=== PATIENT | female | born 1980 | race African-American/Black ===

== ENCOUNTER 2016-08-30 08:54 | Emergency (ER) | payer SELFPAY ==
[2016-08-30] MEDS ORDERED: OXYCODONE-ACETAMINOPHEN 5-325 MG TABLET PO ONE (09:44)
[2016-08-30] MEDS ORDERED: CYCLOBENZAPRINE HCL 10 MG TABLET PO ONE (09:44)
--- NOTE | 2016-08-30 09:50 | ER Document Report ---
HPI - HPI Patient complains to provider of: low back pain Onset: Last week Onset/Duration: Persistent Quality of pain: Sharp Pain Level: 5 Context: Patient complains of low back pain for the past week. Patient denies any injury. Patient states she has a previous history of sciatica and suspects the same although she is not having any pain radiating into her legs. Patient denies any fever, injury, urinary retention or incontinence. Patient denies any IV drug use history. Associated Symptoms: Other - Low back pain Exacerbated by: Movement, Walking Relieved by: Denies Similar symptoms previously: Yes Recently seen / treated by doctor: No - ROS ROS below otherwise negative: Yes Systems Reviewed and Negative: Yes All other systems reviewed and negative - CONSTITUTIONAL Constitutional: DENIES: Fever, Chills - NEURO Neurology: DENIES: Headache, Weakness, Vision blurred, Dizzinesss / Vertigo - RESPIRATORY Respiratory: DENIES: Trouble Breathing, Coughing - URINARY Urinary: DENIES: Dysuria, Urgency, Frequency - REPRODUCTIVE Reproductive: DENIES: :, Postmenopausal, Abnormal bleeding / discharge - MUSCULOSKELETAL Musculoskeletal: REPORTS: Back Pain. DENIES: Extremity pain, Neck Pain, Swelling - DERM Skin Color: Normal Skin Problems: None - NURSING COMMENTS Comment: pt alert and oriented. ambulates with steady gait. states pain to the lower mid back. started last tuesday. states she has hx of sciatic. denies pain going down the legs. states pain is concentrated to the lower back. Past Medical History - General Information source: Patient Last Menstrual Period: 08/05/17 - Social History Smoking Status: Never Smoker Chew tobacco use (# tins/day): No Frequency of alcohol use: None Drug Abuse: None Occupation: import clerk Lives with: Family Family History: None Patient has suicidal ideation: No Patient has homicidal ideation: No - Past Medical History Cardiac Medical History: Reports: Hx Hypertension Pulmonary Medical History: Reports: Hx Bronchitis Endocrine Medical History: Reports: Hx Diabetes Mellitus Type 2 - diet controlled at this time Musculoskeltal Medical History: Reports Other - Back pain Past Surgical History: Reports: Hx Appendectomy, Hx Section, Hx Cholecystectomy - Immunizations Hx Diphtheria, Pertussis, Tetanus Vaccination: Yes Vertical Provider Document - CONSTITUTIONAL Agree With Documented VS: Yes Exam Limitations: No Limitations General Appearance: WD/WN, No Apparent Distress Notes: PHYSICAL EXAMINATION: GENERAL: Obese, well-appearing, and in no acute distress. HEAD: Atraumatic, normocephalic. EYES: sclera clear, anicteric, conjunctiva are normal. ENT: nares patent, Moist mucous membranes. NECK: Normal range of motion, supple no lymphadenopathy LUNGS: respirations unlabored HEART: Regular rate and rhythm without murmurs EXTREMITIES: Normal range of motion, no pitting or edema. No cyanosis. Gait normal, pt ambulates without difficulty BACK: Lower lumbar midline tenderness, lower lumbar paraspinal tenderness, no deformities or step-offs. No CVA tenderness. NEUROLOGICAL: Cranial nerves grossly intact. Normal speech, normal gait. No saddle anesthesia. PSYCH: Normal mood, normal affect. SKIN: Warm, Dry, normal turgor, no rashes or lesions noted. - INFECTION CONTROL TRAVEL OUTSIDE OF THE [place] IN LAST 30 DAYS: No - RESPIRATORY O2 Sat by Pulse Oximetry: 100 Course - Vital Signs Vital signs: Temp Pulse Resp BP Pulse Ox 97.7 F 85 18 139/82 H 100 08/30/16 09:00 08/30/16 09:00 08/30/16 09:00 08/30/16 09:00 08/30/16 09:00 Discharge - Discharge Clinical Impression: Low back pain Qualifiers: Chronicity: acute Back pain laterality: midline Sciatica presence: without sciatica Qualified Code(s): M54.5 - Low back pain Condition: Good Disposition: HOME, SELF-CARE Additional Instructions: Return immediately for any new or worsening symptoms Followup with your primary care provider, call tomorrow to make a followup appointment Prescriptions: Cyclobenzaprine HCl [Flexeril 10 Mg Tablet] 10 mg PO TID #15 tablet Oxycodone HCl/Acetaminophen [Percocet 5-325 mg Tablet] 1 tab PO ASDIR PRN #15 tablet PRN Reason: Forms: Return to Work Referrals: [facility] [Provider Group] - Follow up as needed
[2016-08-30 10:15] VITALS: BP 134/78
== END 2016-08-30 09:55 | disposition home or self-care (01) ==
LOC: ER 08:54
DX: M54.5 Low back pain (principal); I10 Essential (primary) hypertension
CPT/HCPCS: 99283

== ENCOUNTER 2016-09-02 14:39 | Emergency (ER) | payer SELFPAY ==
[2016-09-02] MEDS ORDERED: ASPIRIN 81 MG TABLET, CHEWABLE PO ONE (15:07)
--- NOTE | 2016-09-02 15:11 | ER Document Report ---
ED Medical Screen (RME) - General Stated Complaint: BACK PAIN/CHEST TIGHTNESS Notes: She presents to the emergency department with complaints of low back pain that is radiating down her legs. She reports she was evaluated here last week for same symptoms but not the pain is radiating down her legs. She also complaints of chest tightness. TRAVEL OUTSIDE OF THE [place] IN LAST 30 DAYS: No - Related Data Allergies/Adverse Reactions: lisinopril [Lisinopril] Allergy (Intermediate, Verified 09/02/16 15:03) Swollen tongue MAXWELL Inhibitors [Maxwell Inhibitors] Allergy (Verified 09/02/16 15:03) ACEINHIBITORS [MAXWELL Inhibitors] Allergy (Verified 09/02/16 15:03) Past Medical History - Past Medical History Cardiac Medical History: Reports: Hx Hypertension Pulmonary Medical History: Reports: Hx Bronchitis Endocrine Medical History: Reports: Hx Diabetes Mellitus Type 2 - diet controlled at this time Past Surgical History: Reports: Hx Appendectomy, Hx Section, Hx Cholecystectomy - Immunizations Hx Diphtheria, Pertussis, Tetanus Vaccination: Yes Physical Exam - Vital signs Vitals: Temp Pulse Resp BP Pulse Ox 98.1 F 114 H 20 149/73 H 100 09/02/16 15:05 09/02/16 15:05 09/02/16 15:05 09/02/16 15:05 09/02/16 15:05 Course - Vital Signs Vital signs: Temp Pulse Resp BP Pulse Ox 98.1 F 114 H 20 149/73 H 100 09/02/16 15:05 09/02/16 15:05 09/02/16 15:05 09/02/16 15:05 09/02/16 15:05
[2016-09-02] MEDS ORDERED: DEXAMETHASONE 4 MG TABLET PO ONE (16:33)
[2016-09-02 17:54] LABS: APPEARANCE,URINE TURBID; BILIRUBIN,URINE NEGATIVE (NEGATIVE); GLUCOSE, URINE NEGATIVE (NEGATIVE); KETONES,URINE NEGATIVE (NEGATIVE); LEUKOCYTE ESTERASE,URINE NEGATIVE (NEGATIVE); NITRITE,URINE NEGATIVE (NEGATIVE); PROTEIN,URINE NEGATIVE (NEGATIVE); URINE SPECIFIC GRAVITY 1.028; UROBILINOGEN,URINE NEGATIVE mg/dL (<2.0)
--- NOTE | 2016-09-02 18:00 | ER Document Report ---
[id number] PAIN/CHEST TIGHTNESS Notes: The patient is a 36-year-old female, past medical history sciatica, presents with 1 week of bilateral lower back pain, worse in the left side, and now tingling down the back of her left leg. She feels like her left leg is heavier , but she is able to walk without difficulty. She was seen in the emergency room a few days ago and was given Motrin, Flexeril and Percocet. She says this is helping with her symptoms, but she is unable to take the Flexeril or Percocet at work. 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 She also had a brief episode of right upper chest pain that resolved quickly. She denies shortness of breath, nausea, vomiting, Hx of IVDA, fevers, change in bowel or bladder, flank pain, hematuria or dysuria. TRAVEL OUTSIDE OF THE [place] IN LAST 30 DAYS: No - Related Data Allergies/Adverse Reactions: lisinopril [Lisinopril] Allergy (Intermediate, Verified 09/02/16 15:03) Swollen tongue MAXWELL Inhibitors [Maxwell Inhibitors] Allergy (Verified 09/02/16 15:03) ACEINHIBITORS [MAXWELL Inhibitors] Allergy (Verified 09/02/16 15:03) Past Medical History - General Information source: Patient - Social History Smoking Status: Never Smoker Chew tobacco use (# tins/day): No Frequency of alcohol use: None Drug Abuse: None Family History: None Patient has suicidal ideation: No Patient has homicidal ideation: No - Past Medical History Cardiac Medical History: Reports: Hx Hypertension Pulmonary Medical History: Reports: Hx Bronchitis Endocrine Medical History: Reports: Hx Diabetes Mellitus Type 2 - diet controlled at this time Renal/ Medical History: Denies: Hx Peritoneal Dialysis Past Surgical History: Reports: Hx Appendectomy, Hx Section, Hx Cholecystectomy - Immunizations Hx Diphtheria, Pertussis, Tetanus Vaccination: Yes Review of Systems - Review of Systems Notes: REVIEW OF SYSTEMS: CONSTITUTIONAL: -fevers, -chills EENT: -eye pain, -difficulty swallowing, -nasal congestion CARDIOVASCULAR: +chest pain, -syncope. RESPIRATORY: -cough, -SOB GASTROINTESTINAL: -abdominal pain, - nausea, -vomiting, -diarrhea GENITOURINARY: -dysuria, -hematuria MUSCULOSKELETAL: +back pain, -neck pain SKIN: -rash or skin lesions. HEMATOLOGIC: -easy bruising or bleeding. LYMPHATIC: -swollen, enlarged glands. NEUROLOGICAL: -altered mental status or loss of consciousness, -headache, +left leg tingling PSYCHIATRIC: -anxiety, -depression. ALL OTHER SYSTEMS REVIEWED AND NEGATIVE. Physical Exam - Vital signs Vitals: Temp Pulse Resp BP Pulse Ox 98.1 F 114 H 20 149/73 H 100 09/02/16 15:05 09/02/16 15:05 09/02/16 15:05 09/02/16 15:05 09/02/16 15:05 - Notes Notes: PHYSICAL EXAMINATION: GENERAL: Well-appearing, well-nourished and in no acute distress. HEAD: Atraumatic, normocephalic. EYES: Pupils equal round and reactive to light, extraocular movements intact, sclera anicteric, conjunctiva are normal. ENT: nares patent, oropharynx clear without exudates. Moist mucous membranes. NECK: Normal range of motion, supple without lymphadenopathy LUNGS: Breath sounds clear to auscultation bilaterally and equal. No wheezes rales or rhonchi. HEART: Regular rate and rhythm without murmurs ABDOMEN: Soft, nontender, normoactive bowel sounds. No guarding, no rebound. No masses appreciated. EXTREMITIES: Normal range of motion, no pitting or edema. No cyanosis. Mild tenderness over B/L lower paraspinal muscles. Positive left straight leg raise. NEUROLOGICAL: Cranial nerves grossly intact. Normal speech, normal gait. Normal motor and reflex exams. Tingling down back of left leg. PSYCH: Normal mood, normal affect. SKIN: Warm, Dry, normal turgor, no rashes or lesions noted. Course - Re-evaluation Re-evalutation: Patient's tachycardia resolved before discharge. EKG and chest x-ray does not show any acute findings. Symptoms consistent with sciatica and patient has no red flag signs for low back pain. Treated with steroids and instructed her to continue Motrin and begin Lidoderm patches. She has Flexeril and Percocet prescribed to her from the last time she was in the emergency room. - Vital Signs Vital signs: Temp Pulse Resp BP Pulse Ox 98.2 F 98 20 152/87 H 100 09/02/16 18:08 09/02/16 18:08 09/02/16 18:08 09/02/16 18:08 09/02/16 18:08 - Laboratory Laboratory results interpreted by me: 09/02/16 16:39 Urine Blood MODERATE H Discharge - Discharge Clinical Impression: Back pain Qualifiers: Back pain location: low back pain Chronicity: unspecified Back pain laterality : bilateral Sciatica presence: with sciatica Sciatica laterality: bilateral sciatica Qualified Code(s): M54.42 - Lumbago with sciatica, left side Condition: Good Disposition: HOME, SELF-CARE Additional Instructions: Continue the Motrin and use the Salonpas Lidocaine patches to help with your pain. LOW BACK PAIN: Three out of every four people will have an episode of disabling back pain during their lifetime. Most commonly the pain is due to straining of the muscles and ligaments in the low back. Usual treatment includes: (1) Rest on a firm surface. Avoid lying on your stomach. (2) Ice pack the painful area. After a few days, gentle heat may be used intermittently to relax the area, or ice packs can be continued. (3) Medication may be needed -- muscle relaxers and antiinflammatory medicines are commonly used. (4) As the back improves, exercises are prescribed to strengthen the back and abdominal muscles. Your doctor will advise you on the proper care for your back at each stage in your recovery. You may be better in a few days -- or healing may take several weeks. If new symptoms of a "herniated disc" (radiation of pain, numbness, or tingling down the back of the leg or weakness in the leg) occur, you should be re-examined. Further testing may be necessary. PAIN MEDICATION INJECTION: You have received an injection of a pain medication. You should experience significant pain relief within 45 minutes. If this injection was a narcotic -- it will impair your judgement, slow your reaction time and make you sleepy (as well as relieve your pain). Narcotics also can cause nausea. You should not drive, work with machinery, or perform any task requiring mental alertness until all effects of the medication are gone -- six to eight hours. Do not take any alcohol, or sedatives, and do not take any other medication without checking with your physician. ORAL NARCOTIC MEDICATION: You have been given a prescription for pain control. This medication is a narcotic. It's best taken with food, as nausea can result if taken on an empty stomach. Don't operate machinery or drive within six hours of taking this medication. Do not combine this medicine with alcohol, or with any medication which can cause sedation (such as cold tablets or sleeping pills) unless you get permission from the physician. Narcotics tend to cause constipation. If possible, drink plenty of fluids and eat a diet high in fiber and fruits. Please be aware that prescription narcotics also have the potential for abuse. People become addicted to these medications because of the general sense of wellbeing that they induce. This feeling along with a significant reduction in tension, anxiety, and aggression provides a stimulating seductive quality to these drugs. Once your pain is under control, we encourage you to discard your unused narcotics. MUSCLE RELAXERS: Muscle relaxing medications are usually prescribed for acute muscle spasm or injury to the neck and back. They are often combined with antiinflammatory pain medication for increased relief. You may stop the muscle relaxer when the pain and stiffness have improved. Start the medication again if spasms recur. Muscle relaxers may cause drowsiness, especially with the first dose. Do not operate machinery or drive while under the effects of the medication. Most muscle relaxers last up to 24 hours. Do not combine the medication with alcohol. ICE PACKS: Apply ice packs frequently against the painful area. Many different schedules are recommended, such as "20 minutes on, 20 minutes off" or "one hour ice, two hours rest." If you need to work, you may need to go longer between ice treatments. You should plan to have the area ice packed AT LEAST one fourth of the time. The ice should be applied over the wrap, tape, or splint, or over a layer of cloth -- not directly against the skin. Some ice bags have a built-in cloth and can be put directly on the skin. WARM PACKS: After approximately two days, apply gentle heat (such as a heating pad or hot water bottle) for about 20 to 30 minutes about every two hours -- at least four times daily. Warmth and elevation will help you make a more rapid recovery , and will ease the pain considerably. Do not use HOT heat, and never apply heat for longer than 30 minutes. The continuous heat can invisibly damage skin and muscles -- even when no burn is seen on the surface. Damaged muscles can make you MORE sore. FOLLOW-UP CARE: If you have been referred to a physician for follow-up care, call the physician s office for an appointment as you were instructed or within the next two days. If you experience worsening or a significant change in your symptoms, notify the physician immediately or return to the Emergency Department at any time for re-evaluation. Forms: Elevated Blood Pressure, Return to Work
[2016-09-02 18:09] VITALS: BP 152/87
--- NOTE | 2016-09-03 15:08 | EKG REPORT ---
SEVERITY:- NORMAL ECG - SINUS RHYTHM : Confirmed by: Juanis Moran 03-Sep-2016 15:07:48
== END 2016-09-02 18:09 | disposition home or self-care (01) ==
LOC: ER 14:39
DX: M54.42 Lumbago with sciatica, left side (principal); M54.9 Dorsalgia, unspecified; R07.9 Chest pain, unspecified; Z79.899 Other long term (current) drug therapy
CPT/HCPCS: 71020; 81001; 81025; 93005; 93010; 99284

== ENCOUNTER 2017-02-01 17:24 | Emergency (ER) | payer SELFPAY ==
[2017-02-01 17:31] VITALS: BP 174/82
--- NOTE | 2017-02-01 18:25 | ER Document Report ---
ED Medical Screen (RME) - General Chief Complaint: Leg Swelling Stated Complaint: LEG PAIN SWELLING Time Seen by Provider: 02/01/17 18:16 Mode of Arrival: Wheelchair Notes: This is a 37-year-old female with a history of hypertension and diabetes presents with right lower extremity pain and swelling. She has had discomfort to her entire right leg for the past 4 days. Yesterday she noticed increased swelling and tightness to her leg specifically in her calf. No prior history of thromboembolic disease. She states that she was taken off of her medication for her diabetes and high blood pressure about 8 months ago, as her values had normalized. I have greeted and performed a rapid initial assessment of this patient. A comprehensive ED assessment and evaluation of the patient, analysis of test results and completion of the medical decision making process will be conducted by additional ED providers. TRAVEL OUTSIDE OF THE [place] IN LAST 30 DAYS: No - Related Data Allergies/Adverse Reactions: lisinopril [Lisinopril] Allergy (Intermediate, Verified 02/01/17 17:28) Swollen tongue MAXWELL Inhibitors [Maxwell Inhibitors] Allergy (Verified 02/01/17 17:28) ACEINHIBITORS [MAXWELL Inhibitors] Allergy (Verified 02/01/17 17:28) Past Medical History - Social History Chew tobacco use (# tins/day): No Frequency of alcohol use: None Drug Abuse: None - Past Medical History Cardiac Medical History: Reports: Hx Hypertension Pulmonary Medical History: Reports: Hx Bronchitis Endocrine Medical History: Reports: Hx Diabetes Mellitus Type 2 - diet controlled at this time Renal/ Medical History: Denies: Hx Peritoneal Dialysis Past Surgical History: Reports: Hx Appendectomy, Hx Section, Hx Cholecystectomy - Immunizations Hx Diphtheria, Pertussis, Tetanus Vaccination: Yes Physical Exam - Vital signs Vitals: Temp Pulse Resp BP Pulse Ox 98.7 F 90 16 174/82 H 98 02/01/17 17:28 02/01/17 17:28 02/01/17 17:28 02/01/17 17:28 02/01/17 17:28 Course - Vital Signs Vital signs: Temp Pulse Resp BP Pulse Ox 98.7 F 90 16 174/82 H 98 02/01/17 17:28 02/01/17 17:28 02/01/17 17:28 02/01/17 17:28 02/01/17 17:28
[2017-02-01 18:55] LABS: ABSOLUTE EOSINOPHILS # (AUTO) 0.2 10^3/uL (0.0-0.6); ABSOLUTE LYMPHOCYTES (AUTO) 2.5 10^3/uL (0.5-4.7); ABSOLUTE MONOCYTES (AUTO) 0.5 10^3/uL (0.1-1.4); ABSOLUTE NEUT (AUTO) 3.8 10^3/uL (1.7-8.2); BASOPHILS % (AUTO) 0.5 % (0-2); EOSINOPHILS % (AUTO) 2.2 % (0-6); HEMATOCRIT 39.2 % (36.0-47.0); HEMOGLOBIN 12.9 g/dL (12.0-15.5); HGB HCT DIFFERENCE -0.5; LYMPHOCYTES % (AUTO) 35.4 % (13-45); MEAN CORPUSCULAR HGB CONC 32.9 g/dL (32.0-36.0); MEAN CORPUSCULAR VOLUME 79 fl (80-97); MONOCYTES % (AUTO) 7.2 % (3-13); RED BLOOD COUNT 4.97 10^6/uL (3.72-5.28); RED CELL DISTRIBUTION WIDTH 15.3 % (11.5-14.0); SEGMENTED NEUTROPHILS % (AUTO) 54.7 % (42-78)
[2017-02-01 19:00] LABS: PROTHROMBIN TIME 12.6 SEC (11.4-15.4)
[2017-02-01 19:01] LABS: PARTIAL THROMBOPLASTIN TIME 27.5 SEC (23.5-35.8)
[2017-02-01 19:26] LABS: ANION GAP 12 (5-19); BLOOD UREA NITROGEN 12 mg/dL (7-20); CALCIUM 9.7 mg/dL (8.4-10.2); CARBON DIOXIDE 23 mmol/L (22-30); CHLORIDE 105 mmol/L (98-107); GLUCOSE 99 mg/dL (75-110); POTASSIUM 4.6 mmol/L (3.6-5.0); SODIUM 139.9 mmol/L (137-145)
--- NOTE | 2017-02-01 19:33 | ER Document Report ---
ED Extremity Problem, Lower - General Mode of Arrival: Wheelchair TRAVEL OUTSIDE OF THE [place] IN LAST 30 DAYS: No <NATHANIEL PAGE - Last Filed: 02/02/17 05:14> <LEONCIO ONEILL - Last Filed: 02/11/17 09:20> - General Chief Complaint: Leg Swelling Stated Complaint: LEG PAIN SWELLING Time Seen by Provider: 02/01/17 18:16 Notes: Patient is a 37-year-old female who comes emergency department for chief complaint of right lower leg swelling, mainly around the calf area and slightly below this, she states that she noticed it about 4 days ago, it was worse yesterday, today it has become significantly more swollen and tender. She denies redness or abnormal heat to the area, she denies fever, injury, or history of the same. Patient states that it did improve when she elevated and iced it but it returned as soon as she began walking again. Patient has an IUD , she does not smoke, she denies recent long distance travel, recent surgery, or history of blood clot. She states her father did have blood clots. She takes no daily medication, previously treated for diabetes and high blood pressure. (NATHANIEL PAGE) - Related Data Allergies/Adverse Reactions: lisinopril [Lisinopril] Allergy (Intermediate, Verified 02/01/17 17:28) Swollen tongue MAXWELL Inhibitors [Maxwell Inhibitors] Allergy (Verified 02/01/17 17:28) ACEINHIBITORS [MAXWELL Inhibitors] Allergy (Verified 02/01/17 17:28) Past Medical History - General Information source: Patient - Social History Smoking Status: Never Smoker Chew tobacco use (# tins/day): No Frequency of alcohol use: None Drug Abuse: None Lives with: Family Family History: None Patient has suicidal ideation: No Patient has homicidal ideation: No - Past Medical History Cardiac Medical History: Reports: Hx Hypertension Pulmonary Medical History: Reports: Hx Bronchitis Endocrine Medical History: Reports: Hx Diabetes Mellitus Type 2 - diet controlled at this time Renal/ Medical History: Denies: Hx Peritoneal Dialysis Past Surgical History: Reports: Hx Appendectomy, Hx Section, Hx Cholecystectomy - Immunizations Hx Diphtheria, Pertussis, Tetanus Vaccination: Yes <NATHANIEL PAGE - Last Filed: 02/02/17 05:14> Review of Systems - Review of Systems Constitutional: No symptoms reported EENT: No symptoms reported Cardiovascular: See HPI Respiratory: No symptoms reported Gastrointestinal: No symptoms reported Genitourinary: No symptoms reported Female Genitourinary: No symptoms reported Musculoskeletal: See HPI Skin: No symptoms reported Hematologic/Lymphatic: No symptoms reported Neurological/Psychological: No symptoms reported <NATHANIEL PAGE - Last Filed: 02/02/17 05:14> Physical Exam - Vital signs Interpretation: Normal - General General appearance: Appears well, Alert In distress: None - HEENT Head: Normocephalic, Atraumatic Eyes: Normal Pupils: PERRL - Respiratory Respiratory status: No respiratory distress Chest status: Nontender Breath sounds: Normal Chest palpation: Normal - Cardiovascular Rhythm: Regular. No: Tachycardia Heart sounds: Normal auscultation, S1 appreciated, S2 appreciated Murmur: No - Abdominal Inspection: Normal Distension: No distension Bowel sounds: Normal Tenderness: Nontender Organomegaly: No organomegaly - Back Back: Normal, Nontender - Extremities General upper extremity: Normal inspection, Nontender, Normal ROM, Normal strength General lower extremity: Other - tenderness and swelling mainly on the upper aspect of the right calf muscle area, no erythema, no significant pain to the area, no abnormal heat to the area. Normal distal neurovascular exam, normal range of motion of the knee, normal lower extremity exam - Neurological Neuro grossly intact: Yes Cognition: Normal Orientation: AAOx4 [place] Coma Scale Eye Opening: Spontaneous [place] Coma Scale Verbal: Oriented [place] Coma Scale Motor: Obeys Commands [place] Coma Scale Total: 15 Speech: Normal Motor strength normal: LUE, RUE, LLE, RLE Sensory: Normal - Psychological Associated symptoms: Normal affect, Normal mood - Skin Skin Temperature: Warm Skin Moisture: Dry Skin Color: Normal <NATHANIEL PAGE - Last Filed: 02/02/17 05:14> Course - Laboratory Result Diagrams: 02/01/17 18:36 02/01/17 18:36 <NATHANIEL PAGE - Last Filed: 02/02/17 05:14> - Laboratory Result Diagrams: 02/01/17 18:36 02/01/17 18:36 <LEONCIO ONEILL - Last Filed: 02/11/17 09:20> - Re-evaluation Re-evalutation: There is tenderness and swelling mainly on the upper aspect of the right calf muscle, no erythema, no significant pain to the area, no abnormal heat to the area. Doppler is negative for DVT or any other abnormality. Examination is not consistent with infection appears to be a gastrocnemius tear. Patient provided with Maxwell wrap and crutches after discussion, discussed treatment of this, provide anti-inflammatory, discussed follow-up, discussed return precautions, provided with a work release note. Patient states understanding and agreement with plan. (NATHANIEL PAGE) - Vital Signs Vital signs: Temp Pulse Resp BP Pulse Ox 98.7 F 90 16 174/82 H 98 02/01/17 17:28 02/01/17 17:28 02/01/17 17:28 02/01/17 17:28 02/01/17 17:28 - Laboratory Laboratory results interpreted by ca: 02/01/17 18:36 MCV 79 L MCH 26.0 L RDW 15.3 H Discharge <NATHANIEL PAGE - Last Filed: 02/02/17 05:14> <LEONCIO ONEILL - Last Filed: 02/11/17 09:20> - Discharge Clinical Impression: Pain of right lower extremity Condition: Stable Disposition: HOME, SELF-CARE Additional Instructions: The ultrasound does not show blood clot or any other abnormality. This is most likely a gastrocnemius injury (calf injury), apply ice to the area , take the naproxen as given, elevate your leg. Use the crutches if needed to get around if you are going a further distance. Follow-up with primary care for additional management. Return to emergency department for any concerning or worsening symptoms including increased swelling, severe pain, redness to the area, fever, or any other concerning symptoms. Prescriptions: Naproxen 500 mg PO BID #20 tablet Forms: Return to Work, Elevated Blood Pressure
[2017-02-01] MEDS ORDERED: HYDROCODONE/ACETAMINOPHEN 5-325 MG TABLET PO ONE (19:42)
[2017-02-01] MEDS ORDERED: HYDROCODONE/ACETAMINOPHEN 5-325 MG 6 TAB/DSPK PO PRN (22:19)
--- NOTE | 2017-02-02 08:01 | XCELERA REPORT ---
[address] [address] Lower Extremity Venous Evaluation Name: AMPARO HUGHES Age: 37 yrs Gender: Female : 1980 Patient Status: Emergency Patient Location: ER Study Date: 02/01/2017 08:42 PM Procedure: Color flow and duplex imaging of the veins of the right lower extremity as well as the left Common Femoral vein. Reason For Study: RLE swelling, r/o DVT Ordering Physician: LEONCIO KRISHNAMURTHY Performed By: Shanna Puga Right Sided Venous Evaluation Normal vessel filling wall to wall, compression and augmentation as well as Colour flow down to the infrageniculate veins. Left Sided Venous Evaluation The left common femoral vein is fully compressible. Spontaneous and phasic flow is present in the left common femoral vein. Critical Findings Called into [facility] [place]. Interpretation Summary No duplex evidence of DVT or obstruction in the right lower extremity nor in the left Common Femoral vein. : LEONCIO KRISHNAMURTHY > Mark Brown
== END 2017-02-01 22:39 | disposition home or self-care (01) ==
LOC: ER 17:24
DX: M79.604 Pain in right leg (principal); M79.89 Other specified soft tissue disorders; I10 Essential (primary) hypertension; E11.9 Type 2 diabetes mellitus without complications; Z90.49 Acquired absence of other specified parts of digestive tract; Z97.5 Presence of (intrauterine) contraceptive device
CPT/HCPCS: 36415; 80048; 84703; 85025; 85610; 85730; 93971; 99284

== ENCOUNTER 2017-06-06 07:57 | Emergency (ER) | payer SELFPAY ==
[2017-06-06 08:36] LABS: ABSOLUTE EOSINOPHILS # (AUTO) 0.1 10^3/uL (0.0-0.6); ABSOLUTE LYMPHOCYTES (AUTO) 1.6 10^3/uL (0.5-4.7); ABSOLUTE MONOCYTES (AUTO) 0.4 10^3/uL (0.1-1.4); ABSOLUTE NEUT (AUTO) 2.6 10^3/uL (1.7-8.2); BASOPHILS % (AUTO) 0.7 % (0-2); EOSINOPHILS % (AUTO) 2.9 % (0-6); HEMATOCRIT 38.7 % (36.0-47.0); HGB HCT DIFFERENCE 0.3; LYMPHOCYTES % (AUTO) 34.2 % (13-45); MEAN CORPUSCULAR HEMOGLOBIN 26.5 pg (27.0-33.4); MEAN CORPUSCULAR HGB CONC 33.6 g/dL (32.0-36.0); MEAN CORPUSCULAR VOLUME 79 fl (80-97); MONOCYTES % (AUTO) 7.6 % (3-13); RED CELL DISTRIBUTION WIDTH 14.8 % (11.5-14.0); SEGMENTED NEUTROPHILS % (AUTO) 54.6 % (42-78); WHITE BLOOD COUNT 4.7 10^3/uL (4.0-10.5)
[2017-06-06 08:49] LABS: APPEARANCE,URINE CLOUDY; BILIRUBIN,URINE NEGATIVE (NEGATIVE); GLUCOSE, URINE NEGATIVE (NEGATIVE); KETONES,URINE NEGATIVE (NEGATIVE); LEUKOCYTE ESTERASE,URINE MODERATE (NEGATIVE); NITRITE,URINE NEGATIVE (NEGATIVE); PROTEIN,URINE 100 mg/dL (NEGATIVE); UROBILINOGEN,URINE NEGATIVE mg/dL (<2.0)
[2017-06-06] MEDS ORDERED: NORMAL SALINE 1000 ML 1,000 ML IV ONE (09:10)
[2017-06-06] MEDS ORDERED: ONDANSETRON HCL INJ/PF 4 MG/2 ML SDV IV ONE (09:10)
[2017-06-06] MEDS ORDERED: ACETAMINOPHEN 325 MG TABLET PO ONE (09:11)
--- NOTE | 2017-06-06 09:17 | ER Document Report ---
ED General - General Chief Complaint: Vaginal Bleeding Stated Complaint: FALL HEAD PAIN Time Seen by Provider: 06/06/17 08:34 Mode of Arrival: Ambulatory Information source: Patient Notes: Patient states that she has been having heavy vaginal bleeding with headache for the past 3 days. Patient states she was standing in her bedroom this morning talking to her son and had a syncopal episode. Patient states that she did hit her head whenever she fell. Patient complains of nausea but denies any vomiting or diarrhea. Patient denies any recent travel, bedrest remobilization. TRAVEL OUTSIDE OF THE [place] IN LAST 30 DAYS: No - HPI Onset: Other - 3 days Onset/Duration: Worse Quality of pain: Achy, Cramping Pain Level: 4 Associated symptoms: Headache, Nausea. denies: Chest pain, Nonproductive cough , Productive cough, Fever, Vomiting, Shortness of breath, Weakness Exacerbated by: Denies Relieved by: Denies Similar symptoms previously: No Recently seen / treated by doctor: No - Related Data Allergies/Adverse Reactions: lisinopril [Lisinopril] Allergy (Intermediate, Verified 06/06/17 08:10) Swollen tongue MAXWELL Inhibitors [Maxwell Inhibitors] Allergy (Verified 06/06/17 08:10) ACEINHIBITORS [MAXWELL Inhibitors] Allergy (Verified 06/06/17 08:10) Past Medical History - General Information source: Patient - Social History Smoking Status: Never Smoker Chew tobacco use (# tins/day): No Frequency of alcohol use: None Drug Abuse: None Occupation: [employer] Lives with: Family Family History: Other - fibroid uterus-mother Patient has suicidal ideation: No Pulmonary Medical History: Reports: Hx Bronchitis Endocrine Medical History: Reports: Hx Diabetes Mellitus Type 2 - diet controlled at this time Renal/ Medical History: Denies: Hx Peritoneal Dialysis Past Surgical History: Reports: Hx Appendectomy, Hx Section, Hx Cholecystectomy - Immunizations Hx Diphtheria, Pertussis, Tetanus Vaccination: Yes Review of Systems - Review of Systems Constitutional: No symptoms reported. denies: Fever, Recent illness EENT: No symptoms reported. denies: Blurred vision Cardiovascular: Syncope. denies: Chest pain, Dizziness, Lightheaded Respiratory: No symptoms reported. denies: Cough, Short of breath Gastrointestinal: Abdominal pain, Nausea. denies: Vomiting Genitourinary: No symptoms reported. denies: Dysuria Female Genitourinary: Vaginal bleeding. denies: Vaginal discharge Musculoskeletal: No symptoms reported Skin: No symptoms reported Hematologic/Lymphatic: No symptoms reported Neurological/Psychological: Headaches. denies: Confusion, Weakness, Gait changes, Speech impairment Physical Exam - Vital signs Vitals: Temp Pulse Resp BP Pulse Ox 98.8 F 89 20 148/98 H 100 06/06/17 08:03 06/06/17 08:03 06/06/17 08:03 06/06/17 08:03 06/06/17 08:03 - General General appearance: Appears well, Alert In distress: None - HEENT Head: Normocephalic, Atraumatic, Tenderness - right parietal scalp. No: Ecchymosis, Open wounds, Racoon's eyes Extraocular movements intact: Yes Eyelashes: Normal Pupils: PERRL Ears: Normal External canal: Normal Tympanic membrane: Normal. No: Hemotympanum Nasal: Normal Mouth/Lips: Normal Mucous membranes: Normal Pharynx: Normal Neck: Normal. No: Lymphadenopathy, Supple Notes: no midline tenderness, step off or deformity - Respiratory Respiratory status: No respiratory distress Chest status: Nontender Breath sounds: Normal Chest palpation: Normal - Cardiovascular Rhythm: Regular Heart sounds: S1 appreciated, S2 appreciated Murmur: No - Abdominal Inspection: Normal Distension: No distension Bowel sounds: Normal Tenderness: Tender - lower pelvic Organomegaly: No organomegaly - Genitourinary External exam: Normal Speculum exam: Cervix closed Bimanuel exam: Adnexal tenderness - right - Back Back: Normal, Nontender. No: CVA tenderness, Vertebra tenderness - Extremities General upper extremity: Normal inspection, Normal ROM General lower extremity: Normal inspection, Normal ROM - Neurological Neuro grossly intact: Yes Cognition: Normal Orientation: AAOx4 Terrell Coma Scale Eye Opening: Spontaneous Chrisney Coma Scale Verbal: Oriented Chrisney Coma Scale Motor: Obeys Commands Terrell Coma Scale Total: 15 - Psychological Associated symptoms: Normal affect, Normal mood - Skin Skin Temperature: Warm Skin Moisture: Dry Skin Color: Normal Course - Re-evaluation Re-evalutation: 06/06/17 13:23 The patient presents with headache without signs of DRAWER MAKER bleed, stroke, infection , or other serious etiology. The patient is neurologically intact. Given the extremely low risk of these diagnoses further testing and evaluation for these possibilities does not appear to be indicated at this time. The patient has been instructed to return if the symptoms worsen or change in any way. Patient presents with abdominal pain without signs of peritonitis or other life- threatening or serious etiology. Patient appears stable for discharge and has been instructed to return immediately if the symptoms worsen in any way for reevaluation. Consulted with Dr. Murillo regarding patient presentation. Reviewed her diagnostic test results and EKG. Agrees with discharge plan of care at this time. Patient without any concern for PE or cardiovascular pathology for her syncopal episode. Patient without any chest pain, palpitations or dyspnea. Pt PERC negative. 06/06/17 18:56 late entry: Patient with a recorded discharge vital signs heart rate in the 20s , patient was not bradycardic and provider feels that this was recorded in error at time of discharge. - Vital Signs Vital signs: Temp Pulse Resp BP Pulse Ox 98.4 F 20 L 17 142/78 H 98 06/06/17 14:00 06/06/17 14:00 06/06/17 14:00 06/06/17 14:00 06/06/17 14:00 - Laboratory Result Diagrams: 06/06/17 08:21 06/06/17 08:17 Laboratory results interpreted by me: 06/06/17 06/06/17 06/06/17 08:17 08:21 10:30 MCV 79 L MCH 26.5 L RDW 14.8 H Urine Protein 100 H Urine Blood LARGE H SMALL H Ur Leukocyte Esterase MODERATE H 06/06/17 13:22 Labs- Entire Visit 06/06/17 06/06/17 06/06/17 08:17 08:17 08:17 WBC RBC Hgb Hct MCV MCH MCHC RDW Plt Count Seg Neutrophils % Lymphocytes % Monocytes % Eosinophils % Basophils % Absolute Neutrophils Absolute Lymphocytes Absolute Monocytes Absolute Eosinophils Absolute Basophils Sodium 144.2 Potassium 4.5 Chloride 106 Carbon Dioxide 23 Anion Gap 15 BUN 8 Creatinine 0.80 Est GFR ( Amer) > 60 Est GFR (Non-Af Amer) > 60 Glucose 101 Calcium 10.0 Total Bilirubin 0.6 Direct Bilirubin 0.4 Indirect Bilirubin Not Reportable Neonat Total Bilirubin Not Reportable AST 20 ALT 35 Alkaline Phosphatase 94 Total Protein 7.7 Albumin 4.5 Serum HCG, Qual NEGATIVE Urine Color RED Urine Appearance CLOUDY Urine pH 7.0 Ur Specific [place] 1.010 Urine Protein 100 H Urine Glucose (UA) NEGATIVE Urine Ketones NEGATIVE Urine Blood LARGE H Urine Nitrite NEGATIVE Urine Bilirubin NEGATIVE Urine Urobilinogen NEGATIVE Ur Leukocyte Esterase MODERATE H Urine WBC (Auto) >182 Urine RBC (Auto) >182 Squamous Epi Cells Auto Urine Mucus (Auto) OCC Urine Ascorbic Acid NEGATIVE Bacteria (Wet Prep) Trichomonas (Wet Prep) Vaginal WBC Vaginal RBC Vaginal Yeast Chlamydia DNA (PCR) N.gonorrhoeae DNA (PCR) 06/06/17 06/06/17 06/06/17 08:21 10:30 10:30 WBC 4.7 RBC 4.90 Hgb 13.0 Hct 38.7 MCV 79 L MCH 26.5 L MCHC 33.6 RDW 14.8 H Plt Count 307 Seg Neutrophils % 54.6 Lymphocytes % 34.2 Monocytes % 7.6 Eosinophils % 2.9 Basophils % 0.7 Absolute Neutrophils 2.6 Absolute Lymphocytes 1.6 Absolute Monocytes 0.4 Absolute Eosinophils 0.1 Absolute Basophils 0.0 Sodium Potassium Chloride Carbon Dioxide Anion Gap BUN Creatinine Est GFR ( Amer) Est GFR (Non-Af Amer) Glucose Calcium Total Bilirubin Direct Bilirubin Indirect Bilirubin Neonat Total Bilirubin AST ALT Alkaline Phosphatase Total Protein Albumin Serum HCG, Qual Urine Color Urine Appearance Urine pH Ur Specific [place] Urine Protein Urine Glucose (UA) Urine Ketones Urine Blood Urine Nitrite Urine Bilirubin Urine Urobilinogen Ur Leukocyte Esterase Urine WBC (Auto) Urine RBC (Auto) Squamous Epi Cells Auto Urine Mucus (Auto) Urine Ascorbic Acid Bacteria (Wet Prep) 3+ BACTERIA SEEN Trichomonas (Wet Prep) NO TRICHOMONAS SEEN Vaginal WBC 1+ WBCS SEEN Vaginal RBC 4+ RBCS SEEN Vaginal Yeast NO YEAST SEEN Chlamydia DNA (PCR) NOT DETECTED N.gonorrhoeae DNA (PCR) NOT DETECTED 06/06/17 10:30 WBC RBC Hgb Hct MCV MCH MCHC RDW Plt Count Seg Neutrophils % Lymphocytes % Monocytes % Eosinophils % Basophils % Absolute Neutrophils Absolute Lymphocytes Absolute Monocytes Absolute Eosinophils Absolute Basophils Sodium Potassium Chloride Carbon Dioxide Anion Gap BUN Creatinine Est GFR ( Amer) Est GFR (Non-Af Amer) Glucose Calcium Total Bilirubin Direct Bilirubin Indirect Bilirubin Neonat Total Bilirubin AST ALT Alkaline Phosphatase Total Protein Albumin Serum HCG, Qual Urine Color STRAW Urine Appearance CLEAR Urine pH 7.0 Ur Specific [place] 1.006 Urine Protein NEGATIVE Urine Glucose (UA) NEGATIVE Urine Ketones NEGATIVE Urine Blood SMALL H Urine Nitrite NEGATIVE Urine Bilirubin NEGATIVE Urine Urobilinogen NEGATIVE Ur Leukocyte Esterase NEGATIVE Urine WBC (Auto) 0 Urine RBC (Auto) 2 Squamous Epi Cells Auto <1 Urine Mucus (Auto) Urine Ascorbic Acid NEGATIVE Bacteria (Wet Prep) Trichomonas (Wet Prep) Vaginal WBC Vaginal RBC Vaginal Yeast Chlamydia DNA (PCR) N.gonorrhoeae DNA (PCR) - Diagnostic Test Radiology reviewed: Reports reviewed Discharge - Discharge Clinical Impression: Dysmenorrhea, Elevated blood pressure reading Syncope Qualifiers: Syncope type: unspecified Qualified Code(s): R55 - Syncope and collapse Uterine fibroid Qualifiers: Uterine leiomyoma location: unspecified location Qualified Code(s): D25.9 - Leiomyoma of uterus, unspecified Condition: Stable Disposition: HOME, SELF-CARE Instructions: Anti-Inflammatory Medication ([facility]), Dysfunctional Uterine Bleeding ([facility]), Dysmenorrhea ([facility]), Syncopal Episode ([facility]) Additional Instructions: Return immediately for any new or worsening symptoms Followup with your primary care provider, call tomorrow to make a followup appointment Follow-up with a micropaleontologist for further evaluation of uterine fibroids and heavy menses Follow-up with a vice president integrated for recheck and further evaluation of your syncopal episode Prescriptions: Naproxen [Naprosyn 250 Nmg Tablet] 1 tab PO BID #14 tablet Promethazine HCl [Phenergan 25 mg Tablet] 25 mg PO Q6H PRN #8 tablet PRN Reason: Forms: Return to Work Referrals: [facility] [Provider Group] - Follow up as needed [facility] [Provider Group] - Follow up in 3-5 days GRICELDA LEONARD MD [ACTIVE STAFF] - Follow up in 3-5 days [facility] [Provider Group] - Follow up tomorrow
[2017-06-06 09:33] LABS: ALANINE AMINOTRANSFERASE 35 U/L (9-52); ALBUMIN 4.5 g/dL (3.5-5.0); ALKALINE PHOSPHATASE 94 U/L (38-126); ANION GAP 15 (5-19); ASPARTATE AMINO TRANSFERASE 20 U/L (14-36); BILIRUBIN,DIRECT 0.4 mg/dL (0.0-0.4); BILIRUBIN,TOTAL 0.6 mg/dL (0.2-1.3); BLOOD UREA NITROGEN 8 mg/dL (7-20); CARBON DIOXIDE 23 mmol/L (22-30); CHLORIDE 106 mmol/L (98-107); GLUCOSE 101 mg/dL (75-110); POTASSIUM 4.5 mmol/L (3.6-5.0); SODIUM 144.2 mmol/L (137-145); TOTAL PROTEIN 7.7 g/dL (6.3-8.2)
--- NOTE | 2017-06-06 10:21 | RADIOLOGY REPORT (SQ) ---
EXAM DESCRIPTION: CT HEAD WITHOUT COMPLETED DATE/TIME: 06/06/2017 10:02 am REASON FOR STUDY: syncope, [place] COMPARISON: 03/29/2016 TECHNIQUE: Axial images acquired through the brain without intravenous contrast. Images reviewed wi th bone, brain and subdural windows. Images stored on PACS. All CT scanners at this facility use dose modulation, iterative reconstruction, and/or weight based d osing when appropriate to reduce radiation dose to as low as reasonably achievable (ALARA). [facility]: Dose Right [facility]: CareDose [facility]: Dose Right [facility]: Teradose 4D [facility]: Smart Sol Vol[employer]ics RADIATION DOSE: Up-to-date CT equipment and radiation dose reduction techniques were employed. CTDIv ol: 64.6 mGy. DLP: 1163 mGy-cm. mGy. LIMITATIONS: None. FINDINGS: VENTRICLES: Normal size and contour. CEREBRUM: No masses. No hemorrhage. No midline shift. No evidence for acute infarction. Normal gra y/white matter differentiation. No areas of low density in the white matter. CEREBELLUM: No masses. No hemorrhage. No alteration of density. No evidence for acute infarction. EXTRAAXIAL SPACES: No fluid collections. No masses. ORBITS AND GLOBE: No intra- or extraconal masses. Normal contour of globe without masses. CALVARIUM: No fracture. PARANASAL SINUSES: No fluid or mucosal thickening. SOFT TISSUES: No mass or hematoma. OTHER: No other significant finding. IMPRESSION: NORMAL BRAIN CT WITHOUT CONTRAST. EVIDENCE OF ACUTE STROKE: NO. COMMENT: Quality ID # [id number]: Final reports with documentation of one or more dose reduction techniques (e.g., Automated exposure control, adjustment of the mA and/or kV according to patient size, use of iterative reconstruction technique) TECHNICAL DOCUMENTATION: JOB ID: [id number]- All Rights Reserved
[2017-06-06] MEDS ORDERED: KETOROLAC TROMETHAMINE INJ/PF 30 MG/1 ML SDV IV ONE (10:28)
[2017-06-06] MEDS ORDERED: KETOROLAC TROMETHAMINE 60 MG/2 ML SDV IM ONE (11:14)
[2017-06-06 11:18] LABS: APPEARANCE,URINE CLEAR; BILIRUBIN,URINE NEGATIVE (NEGATIVE); GLUCOSE, URINE NEGATIVE (NEGATIVE); KETONES,URINE NEGATIVE (NEGATIVE); LEUKOCYTE ESTERASE,URINE NEGATIVE (NEGATIVE); NITRITE,URINE NEGATIVE (NEGATIVE); PROTEIN,URINE NEGATIVE (NEGATIVE); URINE SPECIFIC GRAVITY 1.006; UROBILINOGEN,URINE NEGATIVE mg/dL (<2.0)
[2017-06-06 12:41] LABS: CHLAM PCR NOT DETECTED (NOT DETECT)
--- NOTE | 2017-06-06 12:52 | RADIOLOGY REPORT (SQ) ---
EXAM DESCRIPTION: U/S NON-OB PELVIS W/O DOP COMPLETED DATE/TIME: 06/06/2017 12:38 pm REASON FOR STUDY: vag bleeding, r adnexal tenderness COMPARISON: None. TECHNIQUE: Dynamic and static grayscale images acquired of the pelvis via transabdominal approach an d recorded on PACS. Additional selected color Doppler and spectral images recorded. LIMITATIONS: None. FINDINGS: UTERUS: Contour normal. Possible 3 x 2.4 x 2.4 cm fibroid in the anterior myometrium. ENDOMETRIAL STRIPE: Normal. An IUD is present CERVIX: 3.6 cm. No nabothian cysts RIGHT OVARY: Not able to be seen. RIGHT OVARY DOPPLER: Ovary not seen. LEFT OVARY: Not able to be seen. LEFT OVARY DOPPLER: Ovary not seen. FREE FLUID: None noted. OTHER: No other significant finding. MEASUREMENTS: UTERUS: 11.6 x 7 x 6 cm. ENDOMETRIAL STRIPE: Not measured. RIGHT OVARY: Not seen. LEFT OVARY: Not seen. IMPRESSION: There appears to be a uterine fibroid. The ovaries could not be seen. TECHNICAL DOCUMENTATION: JOB ID: [id number]- All Rights Reserved
[2017-06-06 14:05] VITALS: BP 142/78
--- NOTE | 2017-06-06 18:38 | EKG REPORT ---
SEVERITY:- NORMAL ECG - SINUS RHYTHM : Confirmed by: Juanis Moran 06-Jun-2017 18:38:07
== END 2017-06-06 14:07 | disposition home or self-care (01) ==
LOC: ER 07:57
DX: N94.6 Dysmenorrhea, unspecified (principal); D25.9 Leiomyoma of uterus, unspecified; R55 Syncope and collapse; R03.0 Elevated blood-pressure reading, without diagnosis of hypertension; R51 Headache; W18.39XA Other fall on same level, initial encounter; Y93.89 Activity, other specified; R11.0 Nausea; R10.9 Unspecified abdominal pain; E11.9 Type 2 diabetes mellitus without complications; Z88.8 Allergy status to other drugs, medicaments and biological substances
CPT/HCPCS: 93005; 99284; 36415; 87210; 84703; 85025; 80053; 81001; 87491; 87591; 76856; 70450; 93010; J1885; J2405; J7030

== ENCOUNTER → 2017-08-03 | Outpatient (CLI) | payer MEDICAID ==
--- NOTE | 2017-08-03 17:35 | RADIOLOGY REPORT (SQ) ---
EXAM DESCRIPTION: ELBOW LEFT >2 VIEWS COMPLETED DATE/TIME: 08/03/2017 5:25 pm REASON FOR STUDY: PAIN IN LEFT ELBOW M25.522 PAIN IN LEFT ELBOW COMPARISON: None. NUMBER OF VIEWS: Four view. TECHNIQUE: AP, lateral, and both oblique radiographic images acquired of the left elbow. LIMITATIONS: None. FINDINGS: MINERALIZATION: Normal. BONES: No acute fracture or dislocation. No worrisome bone lesions. No significant osteophytes. JOINT: No effusions. SOFT TISSUES: No soft tissue swelling. No foreign body. OTHER: No other significant finding. IMPRESSION: NEGATIVE STUDY OF THE LEFT ELBOW. NO EXPLANATION FOR PAIN. TECHNICAL DOCUMENTATION: JOB ID: [id number] [employer]- All Rights Reserved.
[2017-08-03 17:56] LABS: ABSOLUTE EOSINOPHILS # (AUTO) 0.2 10^3/uL (0.0-0.6); ABSOLUTE LYMPHOCYTES (AUTO) 2.3 10^3/uL (0.5-4.7); ABSOLUTE MONOCYTES (AUTO) 0.4 10^3/uL (0.1-1.4); ABSOLUTE NEUT (AUTO) 3.5 10^3/uL (1.7-8.2); BASOPHILS % (AUTO) 0.7 % (0-2); EOSINOPHILS % (AUTO) 2.4 % (0-6); HEMATOCRIT 36.3 % (36.0-47.0); HEMOGLOBIN 12.1 g/dL (12.0-15.5); LYMPHOCYTES % (AUTO) 35.9 % (13-45); MEAN CORPUSCULAR HEMOGLOBIN 26.3 pg (27.0-33.4); MEAN CORPUSCULAR HGB CONC 33.3 g/dL (32.0-36.0); MEAN CORPUSCULAR VOLUME 79 fl (80-97); MONOCYTES % (AUTO) 6.9 % (3-13); SEGMENTED NEUTROPHILS % (AUTO) 54.1 % (42-78); WHITE BLOOD COUNT 6.4 10^3/uL (4.0-10.5)
[2017-08-03 18:35] LABS: ERYTHROCYTE SEDIMENTATION RATE 38 mm/hr (0-20)
== END ==
LOC: OD 17:00
PROVIDERS: ATTEND Nurse Practitioner Acute Care
DX: M25.522 Pain in left elbow (principal)
CPT/HCPCS: 36415; 85025; 85652; 86140

== ENCOUNTER 2017-09-12 11:49 | Emergency (ER) | payer SELFPAY ==
[2017-09-12 12:08] VITALS: BP 135/70
[2017-09-12] MEDS ORDERED: KETOROLAC TROMETHAMINE INJ/PF 30 MG/1 ML SDV IM ONE (12:28)
--- NOTE | 2017-09-12 12:34 | ER Document Report ---
HPI - HPI Pain Level: 5 Notes: Patient is a 37-year-old female no significant past medical history aside from chronic back pain who presents to the ED complaining of bilateral knee pain over the last several days, but have been showing instability over the last couple weeks. Patient states that her right knee worse than left wants to give out on her on occasion. Patient states that her knee pain is primarily anterior , but she is able to walk. Patient does limp when she is walking. Patient states that the pain sometimes radiates down into her anterior lower legs. Patient denies any prolonged immobilization, smoking, hormone replacement, trauma, recent surgery, previous DVT/PE, or previous issues with her knees. Patient states that she does have a history of sciatica from her chronic back pain, but she has not had any radiating pains from her back. Patient states that her back does continue to be sore, but is primarily focused on her knees. Patient denies any history of gout. Patient has not noticed any obvious swelling or redness or warmth to her knees. Denies any headache, fever, neck pain, URI, sore throat, chest pain, palpitations, syncope, cough, shortness of breath, wheeze, dyspnea, abdominal pain, nausea/vomiting/diarrhea, urinary retention, dysuria, hematuria, loss of control of bowel or bladder, numbness/ tingling, saddle anesthesia, muscle paralysis/weakness, or rash. - ROS Notes: REVIEW OF SYSTEMS: CONSTITUTIONAL : Denies fever, chills, or sweats. Denies recent illness. EENT: Denies eye, ear, throat, or mouth pain or symptoms. Denies nasal or sinus congestion or discharge. Denies throat, tongue, or mouth swelling or difficulty swallowing. CARDIOVASCULAR: Denies chest pain. Denies palpitations or racing or irregular heart beat. Denies ankle edema. RESPIRATORY: Denies cough, cold, or chest congestion. Denies shortness of breath, difficulty breathing, or wheezing. GASTROINTESTINAL: Denies abdominal pain or distention. Denies nausea, vomiting , or diarrhea. Denies blood in vomitus, stools, or per rectum. Denies black, tarry stools. Denies constipation. GENITOURINARY: Denies difficulty urinating, painful urination, burning, frequency, blood in urine, or discharge. MUSCULOSKELETAL: see hpi SKIN: Denies rash, lesions or sores. NEUROLOGICAL: Denies confusion or altered mental status. Denies passing out or loss of consciousness. Denies dizziness or lightheadedness. Denies headache. Denies weakness or paralysis or loss of use of either side. Denies sensory loss, numbness, or tingling. Denies seizures. ALL OTHER SYSTEMS REVIEWED AND NEGATIVE. Dictation was performed using [employer] voice recognition software - REPRODUCTIVE LMP: Aug 23 Reproductive: DENIES: : Past Medical History - Social History Smoking Status: Never Smoker Family History: Reviewed & Not Pertinent, Other - fibroid uterus-mother - Past Medical History Cardiac Medical History: Reports: Hx Hypertension Pulmonary Medical History: Reports: Hx Bronchitis Endocrine Medical History: Reports: Hx Diabetes Mellitus Type 2 - diet controlled at this time Renal/ Medical History: Denies: Hx Peritoneal Dialysis Past Surgical History: Reports: Hx Appendectomy, Hx Section, Hx Cholecystectomy - Immunizations Hx Diphtheria, Pertussis, Tetanus Vaccination: Yes Vertical Provider Document - CONSTITUTIONAL Agree With Documented VS: Yes Notes: PHYSICAL EXAMINATION: GENERAL: Well-appearing, well-nourished and in no acute distress. A&Ox4 LUNGS: Breath sounds clear to auscultation bilaterally and equal. No wheezes rales or rhonchi. HEART: Regular rate and rhythm without murmurs, rubs, gallops. ABDOMEN: Soft, nontender, nondistended abdomen. No guarding, no rebound. No masses appreciated. Normal bowel sounds present. No CVA tenderness bilaterally. No pulsatile mass Musculoskeletal: LE's b/l: FROM to passive/active. Strength 5+/5. No deficits noted. No obvious swelling, warmth, erythema, or ecchymosis to the knees b/l. + tenderness to the patellar tendons b/l and to the rt lateral knee joint line. Neg Jules. Ligaments feel stable, but difficult to assess due to patient obesity. N/V intact distal. Calves are soft and w/o erythema/swelling. Enrrique neg b/l. Back: FROM to passive/active. Strength 5+/5. No vertebral point tenderness, stepoffs, or deformities. No other bony tenderness, erythema, swelling, or ecchymosis. SLR negative b/l. Extremities: No cyanosis, clubbing, or edema b/l. Peripheral pulses 2+. Capillary refill less than 2 seconds. NEUROLOGICAL: Normal speech, limping gait but able to walk from waiting room to exam room w/o having to stop. Normal sensory, motor exams. Reflexes 2+ b/l. PSYCH: Normal mood, normal affect. SKIN: Warm, Dry, normal turgor, no rashes or lesions noted. - INFECTION CONTROL TRAVEL OUTSIDE OF THE [place] IN LAST 30 DAYS: No - RESPIRATORY O2 Sat by Pulse Oximetry: 98 Course - Re-evaluation Re-evalutation: 09/12/17 12:33 Patient is an afebrile, well-hydrated, 37-year-old female who presents to the ED with chronic low back pain and bilateral knee pain, suspect inflammatory versus arthritis at this time. Vitals are stable. PE is otherwise unremarkable for any neurovascular compromise, obvious tendon/ligament rupture, obvious fracture/dislocation, septic joint, or DVT. No labs or imaging warranted at this time based on H&P. I do not feel an x-ray will aid in my diagnosis based my clinical suspicion. Patient has not had any recent trauma or injury, and has tenderness to her patellar tendons bilaterally. I did give the patient a knee immobilizer for her right knee to aid in stability until she can see orthopedics. Toradol given IM today. I will send her home with a prescription for naproxen. Conservative measures otherwise for symptoms. Recheck with orthopedics when able. Recheck with your PCM in 3-5 days. Return to the ED with any worsening/concerning symptoms otherwise as reviewed discharge. Patient is in agreement. - Vital Signs Vital signs: Temp Pulse Resp BP Pulse Ox 98.8 F 97 18 135/70 H 98 09/12/17 12:03 09/12/17 12:03 09/12/17 12:03 09/12/17 12:03 09/12/17 12:03 Discharge - Discharge Clinical Impression: Knee pain, bilateral Qualifiers: Chronicity: acute Qualified Code(s): M25.561 - Pain in right knee; M25.562 - Pain in left knee; M25.562 - Pain in left knee Chronic low back pain Qualifiers: Back pain laterality: bilateral Sciatica presence: without sciatica Qualified Code(s): M54.5 - Low back pain; G89.29 - Other chronic pain; G89.29 - Other chronic pain Condition: Stable Disposition: HOME, SELF-CARE Instructions: Ice & Elevation ([facility]), Knee Immobilizing Splint ([facility]) Additional Instructions: Rest, Ice, Compression, Elevation Use immobilizer as directed Tylenol/ibuprofen as needed Light stretches daily Strength exercises as able Moist heat and massage may help F/u with your PCP in 3-5 days for a recheck Call and schedule an appointment with orthopedics for further evaluation and management Return to the ED with any worsening symptoms and/or development of fever, headache, chest pain, palpitations, syncope, shortness of breath, trouble breathing, abdominal pain, n/v/d, muscle weakness/paralysis, numbness/tingling, swelling, redness, or other worsening symptoms that are concerning to you. Prescriptions: Naproxen 500 mg PO BID PRN #30 tablet PRN Reason: Forms: Elevated Blood Pressure Referrals: [facility] [Provider Group] - Follow up in 3-5 days
== END 2017-09-12 12:46 | disposition home or self-care (01) ==
LOC: ER 11:49
DX: M25.561 Pain in right knee (principal); M25.562 Pain in left knee; M54.5 Low back pain; G89.29 Other chronic pain; E11.9 Type 2 diabetes mellitus without complications; I10 Essential (primary) hypertension; E66.9 Obesity, unspecified; Z68.43 Body mass index [BMI] 50.0-59.9, adult
CPT/HCPCS: 99283; 96372; L1830; J1885

== ENCOUNTER 2017-09-26 11:55 | Emergency (ER) | payer MEDICAID ==
[2017-09-26 15:11] LABS: A TYPE INFLUENZA AG NEGATIVE (NEGATIVE); B INFLUENZA AG NEGATIVE (NEGATIVE)
--- NOTE | 2017-09-26 16:26 | ER Document Report ---
ED Flu Like - General Chief Complaint: Flu Symptoms Stated Complaint: COUGH,CONGESTION,SORE THROAT Time Seen by Provider: 09/26/17 13:43 Mode of Arrival: Ambulatory Information source: Patient Notes: Patient has had cough cold congestion and chills for several days. It is worse with exertion and better with rest. No significant radiation of the pain. Symptoms are moderate. They are intermittent. No vomiting or diarrhea. TRAVEL OUTSIDE OF THE [place] IN LAST 30 DAYS: No - Related Data Allergies/Adverse Reactions: lisinopril [Lisinopril] Allergy (Intermediate, Verified 09/26/17 11:59) Swollen tongue MAXWELL Inhibitors [Maxwell Inhibitors] Allergy (Verified 09/26/17 11:59) ACEINHIBITORS [MAXWELL Inhibitors] Allergy (Verified 09/26/17 11:59) Past Medical History - General Information source: Patient - Social History Smoking Status: Unknown if Ever Smoked Chew tobacco use (# tins/day): No Frequency of alcohol use: None Drug Abuse: None Family History: Reviewed & Not Pertinent, Other - fibroid uterus-mother Patient has suicidal ideation: No Patient has homicidal ideation: No - Past Medical History Cardiac Medical History: Reports: Hx Hypertension Pulmonary Medical History: Reports: Hx Bronchitis Endocrine Medical History: Reports: Hx Diabetes Mellitus Type 2 - diet controlled at this time Renal/ Medical History: Denies: Hx Peritoneal Dialysis Past Surgical History: Reports: Hx Appendectomy, Hx Section, Hx Cholecystectomy - Immunizations Hx Diphtheria, Pertussis, Tetanus Vaccination: Yes Review of Systems - Review of Systems Constitutional: Chills, Malaise EENT: Nose discharge Respiratory: Cough Gastrointestinal: denies: Diarrhea, Vomiting -: Yes All other systems reviewed and negative Physical Exam - Vital signs Vitals: Temp Pulse Resp BP Pulse Ox 98.9 F 82 18 159/88 H 99 09/26/17 12:11 09/26/17 12:11 09/26/17 12:11 09/26/17 12:11 09/26/17 12:11 Interpretation: Hypertensive - General General appearance: Appears well, Alert - HEENT Head: Normocephalic, Atraumatic Eyes: Normal Pupils: PERRL - Respiratory Respiratory status: No respiratory distress Chest status: Nontender Breath sounds: Normal Chest palpation: Normal - Cardiovascular Rhythm: Regular Heart sounds: Normal auscultation Murmur: No - Abdominal Inspection: Normal Distension: No distension Bowel sounds: Normal Tenderness: Nontender Organomegaly: No organomegaly - Back Back: Normal, Nontender - Extremities General upper extremity: Normal inspection, Nontender, Normal color, Normal ROM , Normal temperature General lower extremity: Normal inspection, Nontender, Normal color, Normal ROM , Normal temperature, Normal weight bearing. No: Enrrique's sign - Neurological Neuro grossly intact: Yes Cognition: Normal Orientation: AAOx4 [place] Coma Scale Eye Opening: Spontaneous Terrell Coma Scale Verbal: Oriented Terrell Coma Scale Motor: Obeys Commands Terrell Coma Scale Total: 15 Speech: Normal Motor strength normal: LUE, RUE, LLE, RLE Sensory: Normal - Psychological Associated symptoms: Normal affect, Normal mood - Skin Skin Temperature: Warm Skin Moisture: Dry Skin Color: Normal Course - Vital Signs Vital signs: Temp Pulse Resp BP Pulse Ox 98.9 F 82 18 159/88 H 99 09/26/17 12:11 09/26/17 12:11 09/26/17 12:11 09/26/17 12:11 09/26/17 12:11 Discharge - Discharge Clinical Impression: URI (upper respiratory infection) Qualifiers: URI type: unspecified URI Qualified Code(s): J06.9 - Acute upper respiratory infection, unspecified Condition: Stable Disposition: HOME, SELF-CARE Instructions: Upper Respiratory Illness ([facility]) Additional Instructions: Your blood pressure is elevated. Please have this rechecked within 1 week by your doctor. Forms: Elevated Blood Pressure, Return to Work Referrals: ASAD JACOBSON MD [COMMUNITY BASED STAFF] - Follow up in 1 week
[2017-09-26 17:35] VITALS: BP 156/104
== END 2017-09-26 17:41 | disposition home or self-care (01) ==
LOC: ER 11:55
DX: J06.9 Acute upper respiratory infection, unspecified (principal); R05 Cough; R09.81 Nasal congestion; J02.9 Acute pharyngitis, unspecified
CPT/HCPCS: 87804; 99283

== ENCOUNTER 2017-11-16 16:27 | Emergency (ER) | payer MEDICAID ==
[2017-11-16 16:46] VITALS: BP 149/83
[2017-11-16 18:59] LABS: ABSOLUTE EOSINOPHILS # (AUTO) 0.2 10^3/uL (0.0-0.6); ABSOLUTE MONOCYTES (AUTO) 0.4 10^3/uL (0.1-1.4); BASOPHILS % (AUTO) 0.4 % (0-2); EOSINOPHILS % (AUTO) 2.6 % (0-6); HEMOGLOBIN 12.4 g/dL (12.0-15.5); LYMPHOCYTES % (AUTO) 25.8 % (13-45); MEAN CORPUSCULAR HEMOGLOBIN 26.4 pg (27.0-33.4); MEAN CORPUSCULAR HGB CONC 33.4 g/dL (32.0-36.0); MEAN CORPUSCULAR VOLUME 79 fl (80-97); MONOCYTES % (AUTO) 5.8 % (3-13); PLATELET COUNT 345 10^3/uL (150-450); RED BLOOD COUNT 4.68 10^6/uL (3.72-5.28); RED CELL DISTRIBUTION WIDTH 15.1 % (11.5-14.0); SEGMENTED NEUTROPHILS % (AUTO) 65.4 % (42-78); TOTAL CELLS COUNTED % (AUTO) 100 %; WHITE BLOOD COUNT 7.7 10^3/uL (4.0-10.5)
[2017-11-16 19:14] LABS: ALANINE AMINOTRANSFERASE 29 U/L (9-52); ALBUMIN 4.4 g/dL (3.5-5.0); ALKALINE PHOSPHATASE 87 U/L (38-126); ANION GAP 9 (5-19); ASPARTATE AMINO TRANSFERASE 17 U/L (14-36); BILIRUBIN,DIRECT 0.2 mg/dL (0.0-0.4); BILIRUBIN,TOTAL 0.2 mg/dL (0.2-1.3); BLOOD UREA NITROGEN 8 mg/dL (7-20); CALCIUM 10.1 mg/dL (8.4-10.2); CARBON DIOXIDE 24 mmol/L (22-30); CHLORIDE 105 mmol/L (98-107); CREATINE KINASE 156 U/L (30-135); GLUCOSE 86 mg/dL (75-110); POTASSIUM 4.3 mmol/L (3.6-5.0); SODIUM 138.4 mmol/L (137-145); TOTAL PROTEIN 7.6 g/dL (6.3-8.2)
== END 2017-11-16 20:13 | disposition left against medical advice (07) ==
LOC: ER 16:27
DX: Z53.21 Procedure and treatment not carried out due to patient leaving prior to being seen by health care provider (principal); N93.9 Abnormal uterine and vaginal bleeding, unspecified
CPT/HCPCS: 36415; 80053; 82550; 85025; 99281

== ENCOUNTER 2017-11-19 06:40 | Emergency (ER) | payer MEDICAID ==
[2017-11-19 08:05] LABS: ABSOLUTE EOSINOPHILS # (AUTO) 0.2 10^3/uL (0.0-0.6); ABSOLUTE LYMPHOCYTES (AUTO) 1.6 10^3/uL (0.5-4.7); ABSOLUTE MONOCYTES (AUTO) 0.5 10^3/uL (0.1-1.4); ABSOLUTE NEUT (AUTO) 4.3 10^3/uL (1.7-8.2); BASOPHILS % (AUTO) 0.3 % (0-2); HEMATOCRIT 34.8 % (36.0-47.0); HEMOGLOBIN 11.5 g/dL (12.0-15.5); LYMPHOCYTES % (AUTO) 24.3 % (13-45); MEAN CORPUSCULAR HEMOGLOBIN 26.2 pg (27.0-33.4); MEAN CORPUSCULAR HGB CONC 33.1 g/dL (32.0-36.0); MEAN CORPUSCULAR VOLUME 79 fl (80-97); PLATELET COUNT 292 10^3/uL (150-450); RED BLOOD COUNT 4.41 10^6/uL (3.72-5.28); RED CELL DISTRIBUTION WIDTH 15.1 % (11.5-14.0); SEGMENTED NEUTROPHILS % (AUTO) 65.4 % (42-78); TOTAL CELLS COUNTED % (AUTO) 100 %; WHITE BLOOD COUNT 6.6 10^3/uL (4.0-10.5)
[2017-11-19 08:17] LABS: PROTHROMBIN TIME 13.9 SEC (11.4-15.4)
[2017-11-19 08:18] LABS: ANION GAP 9 (5-19); BLOOD UREA NITROGEN 6 mg/dL (7-20); CALCIUM 9.5 mg/dL (8.4-10.2); CARBON DIOXIDE 25 mmol/L (22-30); CHLORIDE 105 mmol/L (98-107); GLUCOSE 94 mg/dL (75-110); PARTIAL THROMBOPLASTIN TIME 30.6 SEC (23.5-35.8); POTASSIUM 4.4 mmol/L (3.6-5.0); SODIUM 139.1 mmol/L (137-145)
--- NOTE | 2017-11-19 08:30 | ER Document Report ---
ED General - General Chief Complaint: Leg Swelling Stated Complaint: RIGHT LEG PAIN Time Seen by Provider: 11/19/17 07:00 TRAVEL OUTSIDE OF THE [place] IN LAST 30 DAYS: No - HPI Patient complains to provider of: Right leg swelling Notes: Patient coming in for right leg swelling. States ongoing for the past few days. Patient states she has knots on her legs pain in her back. Denies any recent travel patient is currently . States approximately 8-9 weeks. Patient is a . States a mild nausea with this . Denies any complications during her previous . Patient does state has a history of hypertension did not take her medications today. - Related Data Allergies/Adverse Reactions: lisinopril [Lisinopril] Allergy (Intermediate, Verified 11/19/17 07:13) Swollen tongue MAXWELL Inhibitors [Maxwell Inhibitors] Allergy (Verified 11/19/17 07:13) ACEINHIBITORS [MAXWELL Inhibitors] Allergy (Verified 11/19/17 07:13) Past Medical History - Social History Smoking Status: Never Smoker Chew tobacco use (# tins/day): No Frequency of alcohol use: None Drug Abuse: None Family History: Reviewed & Not Pertinent, Other - fibroid uterus-mother Patient has suicidal ideation: No Patient has homicidal ideation: No - Past Medical History Cardiac Medical History: Reports: Hx Hypertension Pulmonary Medical History: Reports: Hx Bronchitis Endocrine Medical History: Reports: Hx Diabetes Mellitus Type 2 - diet controlled at this time Renal/ Medical History: Denies: Hx Peritoneal Dialysis Past Surgical History: Reports: Hx Appendectomy, Hx Section, Hx Cholecystectomy - Immunizations Hx Diphtheria, Pertussis, Tetanus Vaccination: Yes Review of Systems - Review of Systems Constitutional: No symptoms reported EENT: No symptoms reported Cardiovascular: No symptoms reported Respiratory: No symptoms reported Gastrointestinal: No symptoms reported Genitourinary: No symptoms reported Female Genitourinary: No symptoms reported Musculoskeletal: Leg swelling Skin: No symptoms reported Hematologic/Lymphatic: No symptoms reported Neurological/Psychological: No symptoms reported -: Yes All other systems reviewed and negative Physical Exam - Vital signs Vitals: Temp Pulse Resp BP Pulse Ox 98.5 F 88 18 164/77 H 98 11/19/17 06:48 11/19/17 06:48 11/19/17 06:48 11/19/17 06:48 11/19/17 06:48 Interpretation: Normal - General General appearance: Appears well, Alert - HEENT Head: Normocephalic, Atraumatic Eyes: Normal Pupils: PERRL - Respiratory Respiratory status: No respiratory distress Chest status: Nontender Breath sounds: Normal Chest palpation: Normal - Cardiovascular Rhythm: Regular Heart sounds: Normal auscultation Murmur: No - Abdominal Inspection: Normal Distension: No distension Bowel sounds: Normal Tenderness: Nontender Organomegaly: No organomegaly - Back Back: Normal, Nontender - Extremities General upper extremity: Normal inspection, Nontender, Normal color, Normal ROM , Normal temperature General lower extremity: Nontender, Edema, Normal color, Normal ROM, Normal temperature, Normal weight bearing. No: Normal inspection - Pain and tenderness with a mild amount of swelling in the right popliteal fossa also a small superficial thrombosed vein in the lateral medial side of the right calf. - Neurological Neuro grossly intact: Yes Cognition: Normal Orientation: AAOx4 [place] Coma Scale Eye Opening: Spontaneous [place] Coma Scale Verbal: Oriented [place] Coma Scale Motor: Obeys Commands Terrell Coma Scale Total: 15 Speech: Normal Motor strength normal: LUE, RUE, LLE, RLE Sensory: Normal - Psychological Associated symptoms: Normal affect, Normal mood - Skin Skin Temperature: Warm Skin Moisture: Dry Skin Color: Normal Course - Re-evaluation Re-evalutation: 11/19/17 14:24 Ultrasound shows no signs of DVT does show superficial thrombophlebitis. Patient was educated to use Tylenol warm compresses. Because patient is advised to discuss with her SILVERING DEPARTMENT SUPERVISOR about the use of anti- inflammatories and early . Patient states understanding will be discharged home. - Vital Signs Vital signs: Temp Pulse Resp BP Pulse Ox 98.8 F 88 20 142/78 H 100 11/19/17 10:14 11/19/17 10:14 11/19/17 10:14 11/19/17 10:14 11/19/17 10:14 - Laboratory Result Diagrams: 11/19/17 07:40 11/19/17 07:40 Laboratory results interpreted by me: 11/19/17 11/19/17 07:40 07:40 Hgb 11.5 L Hct 34.8 L MCV 79 L MCH 26.2 L RDW 15.1 H BUN 6 L Beta HCG, Quant 58448.00 H Discharge - Discharge Clinical Impression: Superficial thrombophlebitis during Qualifiers: Trimester: first trimester Qualified Code(s): O22.21 - Superficial thrombophlebitis in , first trimester Qualifiers: Weeks of gestation: 8 weeks Qualified Code(s): Z3A.08 - 8 weeks gestation of Condition: Good Instructions: Elevation & Warmth ([facility]), ([facility]), Superficial Phlebitis ([facility]), Warm Packs ([facility]) Additional Instructions: Your Doppler today does not show any signs of acute deep venous thrombosis however does show superficial thrombosis. Highly recommend she follow-up with your primary care physician SILVERING DEPARTMENT SUPERVISOR Tylenol for pain control elevation of your leg apply warm compresses to the leg. Return to ER if symptoms worsen. For nausea and vomiting during I recomment: Start with 10-12.5 mg of pyridoxine (vitamin B6) three times a day for 2 days. If not fully effective, Increase to 12.5 mg of pyridoxine four times a day for 2 days. If not fully effective, Increase to 25 mg of pyridoxine three times a day for 2 days. If not fully effective, Continue 25 mg pyridoxine 3 times a day, and add 12.5 mg of doxylamine before bedtime each day for 2 days. If not fully effective, Continue 25 mg pyridoxine 3 times a day, and take 12.5 mg of doxylamine twice a day. If not fully effective, Continue 25 mg pyridoxine 3 times a day, and take 12.5 mg of doxylamine three times a day. If not fully effective, Continue 25 mg pyridoxine 3 times a day, and 12.5 mg of doxylamine 3 times a day , while adding Emetrol, one to two tablespoons (15-30 cc) taken once or twice a day as needed. (Emetrol is an [id number] mixture of sugar syrups and phosphoric acid [phosphorylated carbohydrate solution]) that acts by soothing the actual wall of the gastrointestinal tract). If not fully effective, Consult with your doctor. Referrals: SG ACEVES PA-C [Primary Care Provider] - Follow up as needed
--- NOTE | 2017-11-19 10:00 | RADIOLOGY REPORT (SQ) ---
EXAM DESCRIPTION: VENOUS UNILATERAL LOWER COMPLETED DATE/TIME: 11/19/2017 9:46 am REASON FOR STUDY: pain right leg swelling +preg COMPARISON: None. TECHNIQUE: Dynamic and static mendez scale and color images acquired of the right leg venous system. S elected spectral images acquired with additional compression and augmentation maneuvers. The contrala teral common femoral vein and saphenofemoral junction were also imaged. Images stored on PACS. LIMITATIONS: None. FINDINGS: COMMON FEMORAL: Normal phasicity, compression and augmentation. No visualized echogenic ma terial on mendez scale. No defects on color images. FEMORAL: Normal compression and augmentation. No visualized echogenic material on mendez scale. No defe cts on color images. POPLITEAL: Normal compression, augmentation. No visualized echogenic material on mendez scale. No defec ts on color images. CALF VESSELS: Normal compression, augmentation. No visualized echogenic material on mendez scale. No de fects on color images. GSV and SSV: Greater saphenous normal. Thrombus in the small saphenous. ANY DEEP VENOUS INSUFFICIENCY: Not evaluated. ANY EVIDENCE OF POPLITEAL CYST: No. OTHER: No other significant finding. CONTRALATERAL COMMON FEMORAL VEIN AND SAPHENOFEMORAL JUNCTION: Normal phasicity, compression and augmentation. No visualized echogenic material on mendez scale. No de fects on color images. IMPRESSION: No DVT. SVT in the small saphenous. COMMENT: Pertinent findings on the imaging study reported as a CRITICAL RESULT to BINH Antonio at09:54 on 11/19/2017. Category of Critical Result: SVT TECHNICAL DOCUMENTATION: JOB ID: [id number] [employer]- All Rights Reserved Reading location - IP/workstation name: [email or web address]
[2017-11-19 10:14] VITALS: BP 142/78
== END 2017-11-19 10:15 | disposition home or self-care (01) ==
LOC: ER 06:40
DX: O22.21 Superficial thrombophlebitis in pregnancy, first trimester (principal); O10.911 Unspecified pre-existing hypertension complicating pregnancy, first trimester; Z3A.08 8 weeks gestation of pregnancy; Z90.49 Acquired absence of other specified parts of digestive tract
CPT/HCPCS: 36415; 80048; 84702; 85025; 85610; 85730; 93971; 99284

== ENCOUNTER 2017-11-21 10:07 | Emergency (ER) | payer MEDICAID ==
[2017-11-21 10:15] VITALS: BP 164/75
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
== END 2017-11-21 10:50 | disposition home or self-care (01) ==
LOC: ER 10:07
DX: O22.21 Superficial thrombophlebitis in pregnancy, first trimester (principal); O16.1 Unspecified maternal hypertension, first trimester; O24.911 Unspecified diabetes mellitus in pregnancy, first trimester; M79.604 Pain in right leg; M79.89 Other specified soft tissue disorders; Z3A.09 9 weeks gestation of pregnancy
CPT/HCPCS: 99283

== ENCOUNTER 2017-11-28 11:46 | Emergency (ER) | payer MEDICAID ==
[2017-11-28 11:55] VITALS: BP 128/72
--- NOTE | 2017-11-28 12:31 | ER Document Report ---
ED General - General Chief Complaint: Ankle Pain Stated Complaint: ANKLE PAIN Time Seen by Provider: 11/28/17 12:14 Mode of Arrival: Ambulatory Information source: Patient Notes: Patient is a 37 year old otherwise healthy female who presents with right ankle pain and associated swelling that started 2-3 days ago, worse this morning. She reports she is approximately 10 weeks . She was seen here for right leg pain a week ago and diagnosed with superficial phelbitis. She was advised to take tylenol/ibuprofen which she has been doing. She states pain is worse with ambulation. Denies any fall or injury. Denies any fever, chills, numbness, tingling, warmth, erythema. TRAVEL OUTSIDE OF THE [place] IN LAST 30 DAYS: No - Related Data Allergies/Adverse Reactions: lisinopril [Lisinopril] Allergy (Intermediate, Verified 11/19/17 07:13) Swollen tongue MAXWELL Inhibitors [Maxwell Inhibitors] Allergy (Verified 11/19/17 07:13) ACEINHIBITORS [MAXWELL Inhibitors] Allergy (Verified 11/19/17 07:13) Past Medical History - General Information source: Patient - Social History Smoking Status: Never Smoker Chew tobacco use (# tins/day): No Frequency of alcohol use: None Drug Abuse: None Family History: Reviewed & Not Pertinent, Other - fibroid uterus-mother Patient has suicidal ideation: No Patient has homicidal ideation: No - Past Medical History Cardiac Medical History: Reports: Hx Hypertension Pulmonary Medical History: Reports: Hx Bronchitis Endocrine Medical History: Reports: Hx Diabetes Mellitus Type 2 - diet controlled at this time Renal/ Medical History: Denies: Hx Peritoneal Dialysis Past Surgical History: Reports: Hx Appendectomy, Hx Section, Hx Cholecystectomy - Immunizations Hx Diphtheria, Pertussis, Tetanus Vaccination: Yes Review of Systems - Review of Systems Constitutional: See HPI EENT: No symptoms reported Cardiovascular: No symptoms reported Respiratory: No symptoms reported Gastrointestinal: No symptoms reported Genitourinary: No symptoms reported Female Genitourinary: No symptoms reported Musculoskeletal: See HPI Skin: No symptoms reported Hematologic/Lymphatic: No symptoms reported Neurological/Psychological: No symptoms reported Physical Exam - Vital signs Vitals: Temp Pulse Resp BP Pulse Ox 98.1 F 97 20 128/72 H 99 11/28/17 11:52 11/28/17 11:52 11/28/17 11:52 11/28/17 11:52 11/28/17 11:52 - Notes Notes: PHYSICAL EXAM: CONSTITUTIONAL: Alert and oriented, well-appearing and in no acute distress. HENT: Normocephalic, atraumatic. Trachea midline. Uvula midline. Moist mucous membranes. EYES: Pupils equal round and reactive to light, EOM intact. Sclera anicteric, conjunctiva are normal. No entrapment. HEART: Regular rate and rhythm without murmurs. LUNGS: CTAB and equal. No wheezes, rales or rhonchi. GI: Obese. Normactive bowel sounds. Abdomen is soft, nontender, non-distended. No organomegaly. no CVAT. No rebound or guarding. EXTREMITIES: right ankle TTP calcaneus and bilateral malleolus without erythema , ecchymosis or deformity. Normal range of motion, no pitting edema. No cyanosis. Cap Refill <3 seconds. Non-pitting edema noted to both ankles/feet. NEURO: Cranial nerves grossly intact. Normal sensory/motor exams. PSYCH: Normal mood, normal affect. SKIN: Warm and dry. Normal turgor. No rashes or lesions noted. Course - Re-evaluation Re-evalutation: 11/28/17 12:31 Patient seen and examined. Well hydrated, well appearing. Non-pitting edema noted to right ankle and foot (also present to left foot), neurovascular intact. Reviewed venous doppler done on 11/19/17 which showed SVT of small saphenous vein. Will obtain xray. 11/28/17 13:49 Reviewed imaging and reports. Xray negative for acute abnormalities - discussed results with patient. Suspect pain is 2/2 SVT of small saphenous vein. Advised to discuss pain management options with OBGYN, recommended elevation, rest and heat for standard therapy of SVT/phlebitis. At this time, will discharge with return precautions and follow-up recommendations. Verbal discharge instructions given at the bedside and opportunity for questions given. Medication warnings reviewed. Patient is in agreement with this plan and has verbalized understanding of return precautions and the need for primary care follow-up in the next 24-72 hours. - Vital Signs Vital signs: Temp Pulse Resp BP Pulse Ox 98.1 F 97 20 128/72 H 99 11/28/17 11:52 11/28/17 11:52 11/28/17 11:52 11/28/17 11:52 11/28/17 11:52 - Diagnostic Test Radiology reviewed: Image reviewed, Reports reviewed Discharge - Discharge Clinical Impression: Superficial phlebitis and thrombophlebitis of left leg Condition: Stable Disposition: HOME, SELF-CARE Additional Instructions: Your x-ray today was normal. As we discussed follow-up with her ENGINEERING OFFICER concerning anti-inflammatory medication that is safe for you to take while . If it is okay he can take Aleve twice daily but be sure to check with her ENGINEERING OFFICER prior to taking this medication. Otherwise we recommend rest, elevation, heat packs and Tylenol for pain. If his pain continues you need to follow-up with primary care doctor for referral to a vascular surgeon. FOLLOW-UP CARE: If you have been referred to a physician for follow-up care, call the physician s office for an appointment as you were instructed or within the next two days. If you experience worsening or a significant change in your symptoms, notify the physician immediately or return to the Emergency Department at any time for re-evaluation.l Forms: Elevated Blood Pressure, Return to Work Referrals: JUAN GALLEGOS MD [Primary Care Provider] - Follow up in 3-5 days
--- NOTE | 2017-11-28 13:28 | RADIOLOGY REPORT (SQ) ---
EXAM DESCRIPTION: ANKLE RIGHT COMPLETE COMPLETED DATE/TIME: 11/28/2017 1:18 pm REASON FOR STUDY: pain and swelling COMPARISON: None. NUMBER OF VIEWS: Three views. TECHNIQUE: AP, lateral, and oblique radiographic images acquired of the right ankle. LIMITATIONS: None. FINDINGS: MINERALIZATION: Normal. BONES: No acute fracture or dislocation. No worrisome bone lesions. JOINTS: No effusions. SOFT TISSUES: No soft tissue swelling. No foreign body. OTHER: No other significant finding. IMPRESSION: NEGATIVE STUDY OF THE RIGHT ANKLE. NO RADIOGRAPHIC EVIDENCE OF ACUTE INJURY. TECHNICAL DOCUMENTATION: JOB ID: [id number]- All Rights Reserved Reading location - IP/workstation name: [email or web address]
== END 2017-11-28 14:10 | disposition home or self-care (01) ==
LOC: ER 11:46
DX: O22.21 Superficial thrombophlebitis in pregnancy, first trimester (principal); M25.571 Pain in right ankle and joints of right foot; Z3A.10 10 weeks gestation of pregnancy; Z90.49 Acquired absence of other specified parts of digestive tract
CPT/HCPCS: 99283

== ENCOUNTER 2017-12-16 13:54 | Emergency (ER) | payer OTHER, MEDICAID ==
--- NOTE | 2017-12-16 14:21 | ER Document Report ---
ED Medical Screen (RME) - General Chief Complaint: Shortness Of Breath Stated Complaint: CHEST PAIN Time Seen by Provider: 12/16/17 14:15 Mode of Arrival: Wheelchair Information source: Patient Notes: 37-year-old female history of DVT lower extremity that was diagnosed approximately week and a half ago, started on Lovenox presents with complaints of shortness breath difficulty breathing that started. We discussed the use of a CTA at this time, given her risks and benefits the patient agrees to having a performed I have greeted and performed a rapid initial assessment of this patient. A comprehensive ED assessment and evaluation of the patient, analysis of test results and completion of the medical decision making process will be conducted by additional ED providers. PHYSICAL EXAMINATION: GENERAL: Well-appearing, well-nourished and in mild respiratory distress HEAD: Atraumatic, normocephalic. EYES: Pupils equal round extraocular movements intact, conjunctiva are normal. ENT: Nares patent NECK: Normal range of motion LUNGS: No respiratory distress appears to be having difficulty breathing Musculoskeletal: Normal range of motion NEUROLOGICAL: Normal speech, normal gait. PSYCH: Normal mood, normal affect. SKIN: Warm, Dry, normal turgor, no rashes or lesions noted. TRAVEL OUTSIDE OF THE [place] IN LAST 30 DAYS: No - Related Data Allergies/Adverse Reactions: lisinopril [Lisinopril] Allergy (Intermediate, Verified 12/16/17 13:56) Swollen tongue MAXWELL Inhibitors [Maxwell Inhibitors] Allergy (Verified 12/16/17 13:56) ACEINHIBITORS [MAXWELL Inhibitors] Allergy (Verified 12/16/17 13:56) Past Medical History - Past Medical History Cardiac Medical History: Reports: Hx Hypertension Pulmonary Medical History: Reports: Hx Bronchitis Endocrine Medical History: Reports: Hx Diabetes Mellitus Type 2 - diet controlled at this time Renal/ Medical History: Denies: Hx Peritoneal Dialysis Past Surgical History: Reports: Hx Appendectomy, Hx Section, Hx Cholecystectomy - Immunizations Hx Diphtheria, Pertussis, Tetanus Vaccination: Yes Physical Exam - Vital signs Vitals: Temp Pulse Resp BP Pulse Ox 98.3 F 91 24 H 110/81 100 12/16/17 14:09 12/16/17 14:09 12/16/17 14:09 12/16/17 14:09 12/16/17 14:09 Course - Vital Signs Vital signs: Temp Pulse Resp BP Pulse Ox 98.3 F 91 24 H 110/81 100 12/16/17 14:09 12/16/17 14:09 12/16/17 14:09 12/16/17 14:09 12/16/17 14:09
--- NOTE | 2017-12-16 15:16 | ER Document Report ---
ED General - General Chief Complaint: Shortness Of Breath Stated Complaint: CHEST PAIN Time Seen by Provider: 12/16/17 14:15 Mode of Arrival: Wheelchair Information source: Patient, [facility] Records Notes: 37-year-old female with a history of right lower extremity DVT, diabetes, hypertension currently at 13 weeks presents with complaint of chest pain and shortness of breath. Patient states shortness of breath started 1 day prior to arrival. Chest pain is associated and only present with deep breathing. Patient was diagnosed at [facility] 1 week prior to arrival with an extensive right lower extremity DVT. Patient has been on Lovenox 150 mg twice daily for 9 days. reports compliance of medication. She denies prior history of PE or DVT. Father with multiple clots. She denies travel, recent surgery, estrogen use, history of cancer. Patient has associated headache, nausea, vomiting, right lower extremity pain, swelling. She has been taking Shabbona for the pain without relief. Patient has been receiving care at [facility] in [place]. Denies any abdominal pain, vaginal bleeding, dysuria. TRAVEL OUTSIDE OF THE [place] IN LAST 30 DAYS: No - HPI Onset: Yesterday Onset/Duration: Gradual, Worse Quality of pain: Achy, Burning Severity: Mild Associated symptoms: Chest pain, Headache, Leg swelling, Nausea, Vomiting, Shortness of breath Exacerbated by: Movement Relieved by: Denies Similar symptoms previously: No Recently seen / treated by doctor: Yes - Related Data Allergies/Adverse Reactions: lisinopril [Lisinopril] Allergy (Intermediate, Verified 12/16/17 13:56) Swollen tongue MAXWELL Inhibitors [Maxwell Inhibitors] Allergy (Verified 12/16/17 13:56) ACEINHIBITORS [MAXWELL Inhibitors] Allergy (Verified 12/16/17 13:56) Past Medical History - General Information source: Patient - Social History Smoking Status: Never Smoker Chew tobacco use (# tins/day): No Frequency of alcohol use: None Drug Abuse: None Lives with: Spouse/Significant other Family History: Reviewed & Not Pertinent, Other - fibroid uterus-mother Patient has suicidal ideation: No Patient has homicidal ideation: No - Past Medical History Cardiac Medical History: Reports: Hx Hypertension Pulmonary Medical History: Reports: Hx Bronchitis Endocrine Medical History: Reports: Hx Diabetes Mellitus Type 2 - diet controlled at this time Renal/ Medical History: Denies: Hx Peritoneal Dialysis Past Surgical History: Reports: Hx Appendectomy, Hx Section, Hx Cholecystectomy - Immunizations Hx Diphtheria, Pertussis, Tetanus Vaccination: Yes Review of Systems - Review of Systems Notes: Patient complaining of headache, nausea, vomiting, chest pain, shortness of breath, right lower extremity swelling and pain. She denies fever, chills, abdominal pain, vaginal bleeding, dysuria, back pain. Physical Exam - Vital signs Vitals: Temp Pulse Resp BP Pulse Ox 98.3 F 91 24 H 110/81 100 12/16/17 14:09 12/16/17 14:09 12/16/17 14:09 12/16/17 14:09 12/16/17 14:09 Interpretation: Normal, Tachypneic. No: Hypertensive, Hypoxic - Notes Notes: PHYSICAL EXAMINATION: GENERAL: Well-appearing, well-nourished and in no acute distress. HEAD: Atraumatic, normocephalic. EYES: Pupils equal round and reactive to light, extraocular movements intact, conjunctiva are normal. ENT: Nares patent, oropharynx clear without exudates. Moist mucous membranes. NECK: Normal range of motion, supple without lymphadenopathy LUNGS: Diminished BS bilaterally (likely lack of effort). No wheezes rales or rhonchi. HEART: Regular rate and rhythm without murmurs ABDOMEN: Soft, nontender, nondistended abdomen. No guarding, no rebound. No masses appreciated. Female : deferred Musculoskeletal: Normal range of motion, no pitting or edema. No cyanosis. Right lower extremity swelling, tenderness of the thigh and right calf. Patient has normal temp of the skin, no discoloration, DP pulse intact. NEUROLOGICAL: Cranial nerves grossly intact. Normal speech, normal gait. Normal sensory, motor exams PSYCH: Normal mood, normal affect. SKIN: Warm, Dry, normal turgor, no rashes or lesions noted. Course - Re-evaluation Re-evalutation: Laboratory 12/16/17 12/16/17 15:20 15:20 WBC 7.8 RBC 4.68 Hgb 12.1 Hct 36.4 MCV 78 L MCH 25.9 L MCHC 33.3 RDW 14.6 H Plt Count 394 Seg Neutrophils % 69.1 Lymphocytes % 23.6 Monocytes % 5.5 Eosinophils % 1.0 Basophils % 0.8 Absolute Neutrophils 5.4 Absolute Lymphocytes 1.8 Absolute Monocytes 0.4 Absolute Eosinophils 0.1 Absolute Basophils 0.1 Sodium 141.4 Potassium 4.4 Chloride 104 Carbon Dioxide 20 L Anion Gap 17 BUN 6 L Creatinine 0.65 Est GFR ( Amer) > 60 Est GFR (Non-Af Amer) > 60 Glucose 101 Calcium 10.4 H Total Bilirubin 0.4 Direct Bilirubin 0.4 Neonat Total Bilirubin Not Reportable Neonat Direct Bilirubin Not Reportable Neonat Indirect Bili Not Reportable AST 35 ALT 38 Alkaline Phosphatase 104 Total Protein 7.9 Albumin 4.4 Chest/Abdomen CTA 12/16/17 14:19 IMPRESSION: NORMAL CTA OF THE CHEST. NO PULMONARY EMBOLI. 12/16/17 17:01 Discussed imaging results with the patient (CTA negative for PE) Attempted to contact prescribing physician of Lovenox. Dr Arnold [phone]. message left regarding patient here w dyspnea. Patient will be administered Dilaudid, Reglan and administered a breathing treatment. 12/16/17 17:[address] Teixeira on-call for [facility] who does not recommend any medication changes at this time. We will obtain a duplex to assess for extension. 12/16/17 17:20 12/16/17 19:48 Duplex of the right lower extremity was obtained. Report per tech was patient has clot burden from common femoral down. Patient reevaluated multiple times. She remains stable, in no acute respiratory distress. There is no evidence of hypoxia. CTA was negative for PE. Patient was advised multiple times to return immediately if she has worsening shortness of breath, worsening leg pain. Patient Does have an upcoming appointment with her maternal medicine physician in 2 days. 12/16/17 20:29 12/17/17 02:36 37-year-old at 13 weeks presents with complaint of dyspnea known right extensive DVT. Patient states the pain started 4 weeks prior to arrival. She was seen earlier this month on our emergency department when right lower extremity duplex was negative for DVT at that time. She states approximately 9 days ago she was seen at [facility] diagnosed with a DVT that extends from her common femoral vein down to her popliteal vein. Patient has been taking Lovenox 150 mg twice daily. She assures me that she has been compliant. She denies any previous history of PE or DVT. Upon arrival vital signs reviewed and within normal limits. Patient does not appear toxic or dehydrated. She does not appear to be in respiratory distress throughout our conversation she does take a deep breath in. CT of the chest was obtained and negative for PE. Because the patient lives the area and will likely return to our emergency department I wanted to obtain an ultrasound of her right lower extremity for baseline assessment. I did attempt to contact the patient's maternal health physician. (Message was left) I did finally speak to Dr. Teixeira who was on-call [facility] no further recommendations made at that time. After administration of Dilaudid and a breathing treatment patient does report improvement dyspnea. I have had a long and extensive conversations with the patient that she should return immediately for any changes or worsening of her symptoms. I encouraged her to return with the slightest change in her current state. She has no evidence of phlegmasia alba dolens or phlegmasia cerulea dolens.she does have an upcoming appointment with her [facility] currently prescribing her Lovenox in three days. - Vital Signs Vital signs: Temp Pulse Resp BP Pulse Ox 98.3 F 91 18 125/68 99 12/16/17 14:09 12/16/17 14:09 12/16/17 20:00 12/16/17 20:00 12/16/17 20:00 - Laboratory Result Diagrams: 12/16/17 15:20 12/16/17 15:20 Laboratory results interpreted by me: 12/16/17 12/16/17 15:20 15:20 MCV 78 L MCH 25.9 L RDW 14.6 H Carbon Dioxide 20 L BUN 6 L Calcium 10.4 H - Diagnostic Test Radiology reviewed: Pending, Image reviewed, Reports reviewed Discharge - Discharge Clinical Impression: DVT (deep vein thrombosis) in Dyspnea Qualifiers: Dyspnea type: unspecified Qualified Code(s): R06.00 - Dyspnea, unspecified Condition: Good Disposition: HOME, SELF-CARE Instructions: DVT Outpatient Treatment ([facility]), Possible Evolving Leg DVT ([facility]) Additional Instructions: Follow up with your physician tomorrow for further care or return to the ED IMMEDIATELY if symptoms worsen or new concerns occur. If you cannot afford to follow up with your primary care physician a list of low cost clinics have been provided at the end of your discharge papers as well. Keep your upcoming appointment with your maternal medicine physician as already scheduled for December 19. Please continue your Lovenox as scheduled at 150 mg twice daily. Prescriptions: Hydrocodone/Acetaminophen [Shabbona 5-325 mg Tablet] 1 tab PO Q6H PRN #10 tablet PRN Reason: For Pain Scale 1-3 Forms: Elevated Blood Pressure
[2017-12-16 15:39] LABS: ABSOLUTE BASOPHILS # (AUTO) 0.1 10^3/uL (0.0-0.2); ABSOLUTE EOSINOPHILS # (AUTO) 0.1 10^3/uL (0.0-0.6); ABSOLUTE LYMPHOCYTES (AUTO) 1.8 10^3/uL (0.5-4.7); ABSOLUTE MONOCYTES (AUTO) 0.4 10^3/uL (0.1-1.4); ABSOLUTE NEUT (AUTO) 5.4 10^3/uL (1.7-8.2); BASOPHILS % (AUTO) 0.8 % (0-2); HEMATOCRIT 36.4 % (36.0-47.0); HEMOGLOBIN 12.1 g/dL (12.0-15.5); LYMPHOCYTES % (AUTO) 23.6 % (13-45); MEAN CORPUSCULAR HEMOGLOBIN 25.9 pg (27.0-33.4); MEAN CORPUSCULAR HGB CONC 33.3 g/dL (32.0-36.0); MEAN CORPUSCULAR VOLUME 78 fl (80-97); MONOCYTES % (AUTO) 5.5 % (3-13); PLATELET COUNT 394 10^3/uL (150-450); RED BLOOD COUNT 4.68 10^6/uL (3.72-5.28); RED CELL DISTRIBUTION WIDTH 14.6 % (11.5-14.0); SEGMENTED NEUTROPHILS % (AUTO) 69.1 % (42-78); TOTAL CELLS COUNTED % (AUTO) 100 %; WHITE BLOOD COUNT 7.8 10^3/uL (4.0-10.5)
[2017-12-16 15:58] LABS: ALANINE AMINOTRANSFERASE 38 U/L (9-52); ALBUMIN 4.4 g/dL (3.5-5.0); ALKALINE PHOSPHATASE 104 U/L (38-126); ANION GAP 17 (5-19); ASPARTATE AMINO TRANSFERASE 35 U/L (14-36); BILIRUBIN,DIRECT 0.4 mg/dL (0.0-0.4); BILIRUBIN,TOTAL 0.4 mg/dL (0.2-1.3); BLOOD UREA NITROGEN 6 mg/dL (7-20); CALCIUM 10.4 mg/dL (8.4-10.2); CARBON DIOXIDE 20 mmol/L (22-30); CHLORIDE 104 mmol/L (98-107); GLUCOSE 101 mg/dL (75-110); POTASSIUM 4.4 mmol/L (3.6-5.0); SODIUM 141.4 mmol/L (137-145); TOTAL PROTEIN 7.9 g/dL (6.3-8.2)
--- NOTE | 2017-12-16 16:29 | RADIOLOGY REPORT (SQ) ---
EXAM DESCRIPTION: CTA CHEST COMPLETED DATE/TIME: 12/16/2017 4:14 pm REASON FOR STUDY: sob, dvt on lovenox COMPARISON: Chest x-ray 09/02/2016 TECHNIQUE: CT scan of the chest performed using helical scanning technique with dynamic intravenous contrast injection. Images reviewed with lung, soft tissue and bone windows. Reconstructed coronal and sagittal MPR images reviewed. Additional 3 dimensional post-processing performed to develop Maximal Intensity Projection images (NH P). All images stored on PACS. All CT scanners at this facility use dose modulation, iterative reconstruction, and/or weight based d osing when appropriate to reduce radiation dose to as low as reasonably achievable (ALARA). [facility]: Dose Right [facility]: CareDose [facility]: Dose Right [facility]: Teradose 4D [facility]: [place] [employer] CONTRAST TYPE AND DOSE: contrast/concentration: Isovue 370.00 mg/ml; Total Contrast Delivered: 86.0 ml; Total Saline Delivered: 90.0 ml Contrast bolus optimized for the pulmonary arteries. Not diagnostic for the aorta. RENAL FUNCTION: BUN 6 creatinine 0.64 RADIATION DOSE: CT Rad equipment meets quality standard of care and radiation dose reduction techniq ues were employed. CTDIvol: 36.6 - 59.5 mGy. DLP: 1479 mGy-cm. . LIMITATIONS: None. FINDINGS: LUNGS AND PLEURA: No masses, infiltrates, pneumothorax. No pleural effusions, calcificati ons. AORTA AND GREAT VESSELS: No aneurysm. No dissection. HEART: No pericardial effusion. No significant coronary artery calcifications. PULMONARY ARTERIES: No emboli visualized in the main pulmonary arteries or the segmental branches. HILAR AND MEDIASTINAL STRUCTURES: No identified masses or abnormal nodes. HARDWARE: None in the chest. UPPER ABDOMEN: No significant findings. Limited exam. THYROID AND OTHER SOFT TISSUES: No masses. No adenopathy. BONES: No acute or significant finding. 3D MIPS: Confirm above findings. OTHER: No other significant finding. IMPRESSION: NORMAL CTA OF THE CHEST. NO PULMONARY EMBOLI. COMMENT: Quality ID # [id number]: Final reports with documentation of one or more dose reduction techniques (e.g., Automated exposure control, adjustment of the mA and/or kV according to patient size, use of iterative reconstruction technique) TECHNICAL DOCUMENTATION: JOB ID: [id number] [employer]- All Rights Reserved Reading location - IP/workstation name: [email or web address]
[2017-12-16] MEDS ORDERED: HYDROMORPHONE HCL INJ/PF 2 MG/ML AMPULE IV ONE (16:59)
[2017-12-16] MEDS ORDERED: IPRATROPIUM/ALBUTEROL 0.5-2.5 MG/3 ML AMPUL NEB ONE (16:59)
[2017-12-16] MEDS ORDERED: METOCLOPRAMIDE HCL INJ/PF 10 MG/2 ML SDV IV ONE (16:59)
--- NOTE | 2017-12-16 18:28 | EKG REPORT ---
SEVERITY:- NORMAL ECG - SINUS RHYTHM : Confirmed by: Haile Emanuel MD 16-Dec-2017 18:27:18
[2017-12-16 21:00] VITALS: BP 125/68
--- NOTE | 2017-12-16 21:02 | RADIOLOGY REPORT (SQ) ---
EXAM DESCRIPTION: VENOUS UNILATERAL LOWER COMPLETED DATE/TIME: 12/16/2017 8:52 pm REASON FOR STUDY: rle pain and swelling COMPARISON: 11/19/2017 TECHNIQUE: Dynamic and static mendez scale and color images acquired of the right leg venous system. S elected spectral images acquired with additional compression and augmentation maneuvers. The contrala teral common femoral vein and saphenofemoral junction were also imaged. Images stored on PACS. LIMITATIONS: None. FINDINGS: COMMON FEMORAL: Normal phasicity, compression and augmentation. No visualized echogenic ma terial on mendez scale. No defects on color images. FEMORAL: Occlusive thrombus. POPLITEAL: Occlusive thrombus. CALF VESSELS: Thrombus identified within the peroneal vein and posterior tibial vein. GSV and SSV: Thrombus again identified within the small saphenous vein. Great saphenous vein is salguero nt. ANY DEEP VENOUS INSUFFICIENCY: Not evaluated. ANY EVIDENCE OF POPLITEAL CYST: No. OTHER: No other significant finding. CONTRALATERAL COMMON FEMORAL VEIN AND SAPHENOFEMORAL JUNCTION: Normal phasicity, compression and augmentation. No visualized echogenic material on mendez scale. No de fects on color images. IMPRESSION: EXTENSIVE ACUTE DVT EXTENDING FROM THE CALF VEINS TO THE PROXIMAL FEMORAL VEIN IN THE [facility] LOWER EXTREMITY. AGAIN NOTED IS SUPERFICIAL THROMBOPHLEBITIS INVOLVING THE SMALL SAPHENOUS VEIN. TECHNICAL DOCUMENTATION: JOB ID: [id number] 1965[employer]- All Rights Reserved Reading location - IP/workstation name: [email or web address]
== END 2017-12-16 20:30 | disposition home or self-care (01) ==
LOC: ER 13:54
DX: O22.31 Deep phlebothrombosis in pregnancy, first trimester (principal); I82.431 Acute embolism and thrombosis of right popliteal vein; I82.411 Acute embolism and thrombosis of right femoral vein; O09.521 Supervision of elderly multigravida, first trimester; O26.91 Pregnancy related conditions, unspecified, first trimester; R06.02 Shortness of breath; R07.9 Chest pain, unspecified; Z3A.13 13 weeks gestation of pregnancy; E11.9 Type 2 diabetes mellitus without complications; I10 Essential (primary) hypertension; Z86.718 Personal history of other venous thrombosis and embolism; Z90.49 Acquired absence of other specified parts of digestive tract
CPT/HCPCS: 93005; 94640; 99285; 96374; 96375; 36415; 85025; 80053; 93971; 71275; 93010; J2765; J1170; J7620

== ENCOUNTER → 2018-02-20 | Outpatient (CLI) | payer OTHER, MEDICAID | LOC: OD 13:50 | PROVIDERS: ATTEND Registered Nurse Women's Health Care, Ambulatory | DX: O22.30 Deep phlebothrombosis in pregnancy, unspecified trimester (principal); Z79.01 Long term (current) use of anticoagulants | CPT/HCPCS: 36415; 85520 ==

== ENCOUNTER 2018-03-09 15:19 | Observation (INO) | payer OTHER, MEDICAID ==
[2018-03-09 16:51] LABS: APPEARANCE,URINE SLIGHTLY-CLOUDY; BILIRUBIN,URINE NEGATIVE (NEGATIVE); COLOR,URINE YELLOW; GLUCOSE, URINE NEGATIVE (NEGATIVE); KETONES,URINE NEGATIVE (NEGATIVE); LEUKOCYTE ESTERASE,URINE NEGATIVE (NEGATIVE); NITRITE,URINE NEGATIVE (NEGATIVE); PROTEIN,URINE 30 mg/dL (NEGATIVE); URINE SPECIFIC GRAVITY 1.032
[2018-03-09 17:05] LABS: URINE AMPHETAMINES SCREEN NEGATIVE; URINE BARBITURATES SCREEN NEGATIVE; URINE BENZODIAZEPINES SCREEN NEGATIVE; URINE COCAINE SCREEN NEGATIVE; URINE MARIJUANA (THC) SCREEN NEGATIVE; URINE METHADONE SCREEN NEGATIVE; URINE PHENCYCLIDINE SCREEN NEGATIVE
--- NOTE | 2018-03-09 17:55 | RADIOLOGY REPORT (SQ) ---
EXAM DESCRIPTION: U/S OB LIMITED COMPLETED DATE/TIME: 03/09/2018 5:33 pm REASON FOR STUDY: contractions COMPARISON: None. TECHNIQUE: Limited transvaginal grayscale ultrasound for evaluation of specific requested obstetrica l parameters. LIMITATIONS: Study is limited due to the patient's body habitus. FINDINGS: CERVICAL LENGTH: 3.1 cm. The cervix appears open with questionable cervical funneling. FHR: 144 beats per minute. OTHER: No other significant findings. IMPRESSION: LIMITED OBSTETRICAL ULTRASOUND WITH MEASURED PARAMETERS DELINEATED ABOVE. Trimester of : Second trimester - 13 weeks 1 day to 27 weeks 6 days. TECHNICAL DOCUMENTATION: JOB ID: [id number] [employer]- All Rights Reserved Reading location - IP/workstation name: [email or web address]
[2018-03-09] MEDS ORDERED: LABETALOL HCL 200 MG TABLET PO ONE (20:00)
[2018-03-09] MEDS ORDERED: METFORMIN HCL 500 MG TABLET PO ONE (20:00)
[2018-03-09] MEDS ORDERED: ONDANSETRON 4 MG TAB.RAPDIS PO ONE (20:00)
[2018-03-09] MEDS ORDERED: RINGERS SOLUTION,LACTATED 1,000 ML IV PRN (20:54)
[2018-03-09] MEDS ORDERED: ENOXAPARIN SODIUM INJ 150 MG/1 ML DISP.SYRIN SUBCUT ONE (22:00)
[2018-03-09] MEDS ORDERED: ZOLPIDEM TARTRATE 5 MG TABLET PO SCH (22:00)
[2018-03-09] MEDS ORDERED: ACETAMINOPHEN 325 MG TABLET PO PRN (22:01)
--- NOTE | 2018-03-10 13:26 | RADIOLOGY REPORT (SQ) ---
EXAM DESCRIPTION: U/S OB LIMITED COMPLETED DATE/TIME: 03/10/2018 8:19 am REASON FOR STUDY: cervical length COMPARISON: 03/09/2018 TECHNIQUE: Limited transvaginal and transabdominal grayscale ultrasound for evaluation of specific r equested obstetrical parameters. LIMITATIONS: None. FINDINGS: CERVICAL LENGTH: 4 cm Closed. MYA: 11 cm, largest pocket is 5 cm. FHR: 140 beats per minute. PRESENTATION: Cephalic. OTHER: Leftward placenta without gross evidence of abruption or previa. Placenta grade 1 IMPRESSION: LIMITED OBSTETRICAL ULTRASOUND WITH MEASURED PARAMETERS DELINEATED ABOVE. Trimester of : Second trimester - 13 weeks 1 day to 27 weeks 6 days. TECHNICAL DOCUMENTATION: JOB ID: [id number] [employer]- All Rights Reserved Reading location - IP/workstation name: [email or web address]
--- NOTE | 2018-03-10 14:19 | PDOC DISCHARGE SUMMARY ---
General - Admit/Disc Date/PCP Admission Date/Primary Care Provider: 03/09/18 18:19 SU GALVEZ MD Discharge Date: 03/10/18 - Discharge Diagnosis (1) Is this a current diagnosis for this admission?: Yes (2) contractions Is this a current diagnosis for this admission?: Yes - Additional Information Home Medications: Doxylamine Succinate/Vit B6 [Diclegis Dr 10-10 mg Tablet] 1 each PO ASDIR PRN Fluticasone Propionate [Flonase Nasal [place] 50 Mcg/[place] 16 gm] 2 sprays NASL Q12 PRN 11/16/17 Labetalol HCl [Labetalol HCl] 1 tab PO BID 11/16/17 Metoclopramide HCl [Reglan 10 mg Tablet] 10 mg PO QID PRN 11/16/17 No.52/Iron/FA/Dha [Front Counter Clerk-Pnv-Dha Softgel] 1 tab PO DAILY 11/16/17 Enoxaparin Sodium [Lovenox Inj 100 mg/1 ml Disp.syrin] 100 mg SUBCUT Q12 Metformin HCl 500 mg PO DAILY 03/09/18 Ondansetron HCl [Zofran 4 mg Tablet] 1 tab PO Q8HP PRN 03/09/18 History of Present Illness History of Present Illness: AMPARO HUGHES is a 38 year old female Hospital Course Hospital Course: admitted overnight for observation based on c/o pelvic pressure and some funneling seen at cervix on sono. repeat sono today is reassuring at 4.0 cm. Patient indicates she feels much better and is now ready for discharge. Anxious to return home to get back on her Lovenox schedule Physical Exam - Physical Exam Vital Signs: Temp Pulse Resp BP Pulse Ox 98.5 F 92 18 140/72 H 97 03/10/18 11:47 03/10/18 11:47 03/10/18 11:47 03/10/18 11:47 03/10/18 11:47 Intake & Output 03/09/18 03/10/18 03/11/18 06:59 06:59 06:59 Intake Total 950 Balance 950 Weight 139.9 kg General appearance: PRESENT: no acute distress, cooperative GI/Abdominal exam: PRESENT: soft Result Laboratory Results: 03/09/18 15:28 Urine Color YELLOW Urine Appearance SLIGHTLY-CLOUDY Urine pH 5.0 Ur Specific [place] 1.032 Urine Protein 30 H Urine Glucose (UA) NEGATIVE Urine Ketones NEGATIVE Urine Blood SMALL H Urine Nitrite NEGATIVE Ur Leukocyte Esterase NEGATIVE Urine WBC (Auto) 1 Urine RBC (Auto) 4 Impressions: Obstetrics Ultrasound 03/10/18 07:00 IMPRESSION: LIMITED OBSTETRICAL ULTRASOUND WITH MEASURED PARAMETERS DELINEATED ABOVE. Trimester of : Second trimester - 13 weeks 1 day to 27 weeks 6 days. Plan Discharge Plan: discharge home with pelvic rest and [facility] Time Spent: Less than 30 Minutes
[2018-03-10 14:36] VITALS: BP 117/57
== END 2018-03-10 14:53 | disposition home or self-care (01) ==
LOC: LC 15:19 → LR 18:19 → 2S 20:43
PROVIDERS: ADMIT Obstetrics & Gynecology Gynecology; ATTEND Obstetrics & Gynecology Gynecology
DX: O47.02 False labor before 37 completed weeks of gestation, second trimester (principal); Z3A.24 24 weeks gestation of pregnancy; Z79.899 Other long term (current) drug therapy
CPT/HCPCS: 81001; 80307; 76815 ×2; G0378 ×2; J3490; S0119; J7120

== ENCOUNTER 2018-05-06 11:08 | Outpatient (CLI) | payer MEDICAID, OTHER ==
[2018-05-06 12:21] LABS: APPEARANCE,URINE CLOUDY; COLOR,URINE YELLOW; GLUCOSE, URINE NEGATIVE (NEGATIVE); KETONES,URINE 100 mg/dL (NEGATIVE); URINE SPECIFIC GRAVITY 1.018
[2018-05-06 12:22] LABS: BILIRUBIN,URINE NEGATIVE (NEGATIVE); LEUKOCYTE ESTERASE,URINE TRACE (NEGATIVE); NITRITE,URINE NEGATIVE (NEGATIVE); PROTEIN,URINE 30 mg/dL (NEGATIVE)
[2018-05-06 12:53] LABS: URINE AMPHETAMINES SCREEN NEGATIVE; URINE BARBITURATES SCREEN NEGATIVE; URINE BENZODIAZEPINES SCREEN NEGATIVE; URINE COCAINE SCREEN NEGATIVE; URINE MARIJUANA (THC) SCREEN NEGATIVE; URINE METHADONE SCREEN NEGATIVE; URINE PHENCYCLIDINE SCREEN NEGATIVE
--- NOTE | 2018-05-06 13:29 | Non Stress Test Report ---
Non Stress Test Datetime Report Generated by CPN: 05/06/2018 13:28 DEMOGRAPHIC EGA NST: 33.0 INDICATION Indication for Study: Other Indication for Study (NST) Other: LABOR CHECK MONITORING Monitor Explained: Monitor Explained; Test Explained; Patient Verbalized Understanding Time on Monitor: 05/06/2018 11:31 Time off Monitor: 05/06/2018 13:00 NST Duration: 89 NST INTERVENTIONS NST Interventions: PO Hydration; IV Fluids; Reposition Patient Physician Notified NST: Eli Hickman CNM BABY A: [id number] BABY A Movement : Present Contraction Frequency : none FHR Baseline : 130 Accelerations : 15X15 Decelerations : None Variability : Moderate 6-25bpm NST Review: Meets Criteria for Reactive NST NST Review and Verified By : RATNA Sofia Results: Reactive NST REPORT Report Trigger: Send Report
== END 2018-05-06 14:04 | disposition home or self-care (01) ==
LOC: LC 11:08
PROVIDERS: ATTEND Obstetrics & Gynecology
PROC: 4A1HXCZ Monitoring of Products of Conception, Cardiac Rate, External Approach (ICD-10-PCS; principal; 2018-05-06)
DX: O09.523 Supervision of elderly multigravida, third trimester (principal); Z3A.33 33 weeks gestation of pregnancy
CPT/HCPCS: 80307; 81001; 84112

== ENCOUNTER 2018-07-08 10:12 | Emergency (ER) | payer MEDICAID ==
--- NOTE | 2018-07-08 10:47 | ER Document Report ---
ED Medical Screen (RME) - General Chief Complaint: Leg Pain Stated Complaint: LEG PAIN Time Seen by Provider: 07/08/18 10:30 Mode of Arrival: Ambulatory Information source: Patient Notes: Patient presents emergency department with complaints of left lower leg pain. Patient is from June 16, 2018. Reports history of DVTs throughout her . Reports she has been on Lovenox twice daily. Reports leg started hurting 3 days ago denies trauma. Patient can barely walk due to the pain. Doppler ordered I have greeted and performed a rapid initial assessment of this patient. A comprehensive ED assessment and evaluation of the patient, analysis of test results and completion of the medical decision making process will be conducted by additional ED providers. Dictation of this chart was performed using voice recognition software; therefore, there may be some unintended grammatical errors. TRAVEL OUTSIDE OF THE [place] IN LAST 30 DAYS: No - Related Data Allergies/Adverse Reactions: lisinopril [Lisinopril] Allergy (Intermediate, Verified 07/08/18 10:15) Swollen tongue MAXWELL Inhibitors [Maxwell Inhibitors] Allergy (Verified 07/08/18 10:15) ACEINHIBITORS [MAXWELL Inhibitors] Allergy (Verified 07/08/18 10:15) Past Medical History - Past Medical History Cardiac Medical History: Reports: Hx Hypertension Pulmonary Medical History: Reports: Hx Bronchitis Endocrine Medical History: Reports: Hx Diabetes Mellitus Type 2 - diet controlled at this time Renal/ Medical History: Denies: Hx Peritoneal Dialysis Past Surgical History: Reports: Hx Appendectomy, Hx Section, Hx Cholecystectomy - Immunizations Hx Diphtheria, Pertussis, Tetanus Vaccination: Yes Physical Exam - Vital signs Vitals: Temp Pulse Resp BP Pulse Ox 97.9 F 88 16 123/79 97 07/08/18 10:24 07/08/18 10:24 07/08/18 10:24 07/08/18 10:24 07/08/18 10:24 Course - Vital Signs Vital signs: Temp Pulse Resp BP Pulse Ox 97.9 F 88 16 123/79 97 07/08/18 10:24 07/08/18 10:24 07/08/18 10:24 07/08/18 10:24 07/08/18 10:24 Doctor's Discharge - Discharge Referrals: SU GALVEZ MD [Primary Care Provider] - Follow up as needed
--- NOTE | 2018-07-08 12:07 | RADIOLOGY REPORT (SQ) ---
EXAM DESCRIPTION: VENOUS UNILATERAL LOWER COMPLETED DATE/TIME: 07/08/2018 11:34 am REASON FOR STUDY: post left lower leg pain ,hx DVT COMPARISON: Right lower extremity DVT ultrasound, 12/16/2017 TECHNIQUE: Dynamic and static mendez scale and color images acquired of the left leg venous system. Se lected spectral images acquired with additional compression and augmentation maneuvers. The contralat eral common femoral vein and saphenofemoral junction were also imaged. Images stored on PACS. LIMITATIONS: None. FINDINGS: COMMON FEMORAL: Normal phasicity, compression and augmentation. No visualized echogenic ma terial on mendez scale. No defects on color images. FEMORAL: Normal compression and augmentation. No visualized echogenic material on mendez scale. No defe cts on color images. POPLITEAL: Normal compression, augmentation. No visualized echogenic material on mendez scale. No defec ts on color images. CALF VESSELS: Normal compression, augmentation. No visualized echogenic material on mendez scale. No de fects on color images. GSV and SSV: There is noncompressible thrombus in the midportion of the greater saphenous vein overly ing the mid calf. The proximal portion of the vessel is patent. The superficial saphenous vein is p atent and compressible. ANY DEEP VENOUS INSUFFICIENCY: Not evaluated. ANY EVIDENCE OF POPLITEAL CYST: No. OTHER: No other significant finding. CONTRALATERAL COMMON FEMORAL VEIN AND SAPHENOFEMORAL JUNCTION: Normal phasicity, compression and augmentation. No visualized echogenic material on mendez scale. No de fects on color images. IMPRESSION: 1. Negative ultrasound examination for deep venous thrombosis in the left lower extremit y. 2. Superficial thrombophlebitis of the midportion of the left greater saphenous vein overlying the m id calf. The proximal portion of the vessel is patent and compressible. TECHNICAL DOCUMENTATION: JOB ID: [id number] [employer]- All Rights Reserved Reading location - IP/workstation name: [email or web address]
--- NOTE | 2018-07-08 12:14 | ER Document Report ---
ED Extremity Problem, Lower - General Chief Complaint: Leg Pain Stated Complaint: LEG PAIN Time Seen by Provider: 07/08/18 10:30 Mode of Arrival: Ambulatory Information source: Patient Notes: Patient is a 38-year-old female who presents with chief complaint of left leg pain and swelling. Patient reports pain to the posterior aspect of her left lower extremity behind her calf. She states that she is about 3 weeks post section. She further reports that she is currently taking Lovenox 150 mg twice a daily for a DVT to the right extremity. She states she has been taking this medication for 10 months now. She denies any chest pain or shortness of breath. TRAVEL OUTSIDE OF THE [place] IN LAST 30 DAYS: No - Related Data Allergies/Adverse Reactions: lisinopril [Lisinopril] Allergy (Intermediate, Verified 07/08/18 10:15) Swollen tongue MAXWELL Inhibitors [Maxwell Inhibitors] Allergy (Verified 07/08/18 10:15) ACEINHIBITORS [MAXWELL Inhibitors] Allergy (Verified 07/08/18 10:15) Past Medical History - General Information source: Patient - Social History Smoking Status: Never Smoker Chew tobacco use (# tins/day): No Frequency of alcohol use: None Drug Abuse: None Family History: Reviewed & Not Pertinent, Other - fibroid uterus-mother Patient has suicidal ideation: No Patient has homicidal ideation: No - Past Medical History Cardiac Medical History: Reports: Hx Hypertension Pulmonary Medical History: Reports: Hx Bronchitis Endocrine Medical History: Reports: Hx Diabetes Mellitus Type 2 - diet controlled at this time Renal/ Medical History: Denies: Hx Peritoneal Dialysis Past Surgical History: Reports: Hx Appendectomy, Hx Section, Hx Cholecystectomy - Immunizations Hx Diphtheria, Pertussis, Tetanus Vaccination: Yes Review of Systems - Review of Systems Musculoskeletal: See HPI Physical Exam - Vital signs Vitals: Temp Pulse Resp BP Pulse Ox 97.9 F 88 16 123/79 97 07/08/18 10:24 07/08/18 10:24 07/08/18 10:24 07/08/18 10:24 07/08/18 10:24 - Notes Notes: PHYSICAL EXAMINATION: GENERAL: Well-appearing, well-nourished and in no acute distress. HEAD: Atraumatic, normocephalic. EYES: Pupils equal round and reactive to light, extraocular movements intact, conjunctiva are normal. ENT: Nares patent, oropharynx clear without exudates. Moist mucous membranes. NECK: Normal range of motion, supple without lymphadenopathy LUNGS: Breath sounds clear to auscultation bilaterally and equal. No wheezes rales or rhonchi. HEART: Regular rate and rhythm without murmurs ABDOMEN: Soft, nontender, nondistended abdomen. No guarding, no rebound. No masses appreciated. Female : deferred Musculoskeletal: Normal range of motion, no pitting or edema. No cyanosis. Very mild amount of swelling noted to the left lower extremity in comparison with the right. No erythema or ecchymosis noted. All pulses are present and palpable. NEUROLOGICAL: Cranial nerves grossly intact. Normal speech, normal gait. Normal sensory, motor exams PSYCH: Normal mood, normal affect. SKIN: Warm, Dry, normal turgor, no rashes or lesions noted. - Extremities Left calf in cm: 50 Right calf in cm: 51 Course - Re-evaluation Re-evalutation: Superficial venous thrombosis noted to the saphenous vein in the left lower extremity. Patient already taking Lovenox. Called and spoke with Dr. Dempsey who recommends patient to be discharged home, continue on Lovenox but change to her current weight-based dose which is 125 mg twice daily. - Vital Signs Vital signs: Temp Pulse Resp BP Pulse Ox 98.8 F 86 18 142/76 H 98 07/08/18 12:40 07/08/18 12:40 07/08/18 12:40 07/08/18 12:40 07/08/18 12:40 Discharge - Discharge Clinical Impression: Superficial thrombosis of left lower extremity Condition: Stable Disposition: HOME, SELF-CARE Additional Instructions: I called and spoke with Dr. Dempsey who recommends warm compresses to the area. Try to increase your exercise. She said you can continue taking the Lovenox, since your weight has changed after having the baby you should now be taking 125 mg twice daily. Keep your scheduled follow-up appointment with her. Return to the emergency department if you develop chest pain, shortness of breath or any other symptom that is concerning to you. Prescriptions: Enoxaparin Sodium [Lovenox Inj 150 Mg/1 Ml Disp.Syrin] 125 mg SUBCUT BID #60 disp.syrin Referrals: SU GALVEZ MD [ACTIVE STAFF] - Follow up as needed AJAY DEMPSEY MD [ACTIVE STAFF] - Follow up as needed
[2018-07-08 12:45] VITALS: BP 142/76
== END 2018-07-08 12:45 | disposition home or self-care (01) ==
LOC: ER 10:12
DX: I82.812 Embolism and thrombosis of superficial veins of left lower extremity (principal); M79.605 Pain in left leg; E11.9 Type 2 diabetes mellitus without complications; Z86.718 Personal history of other venous thrombosis and embolism; Z79.01 Long term (current) use of anticoagulants; Z90.49 Acquired absence of other specified parts of digestive tract
CPT/HCPCS: 93971; 99284

== ENCOUNTER → 2019-01-10 | Outpatient (CLI) | payer MEDICAID, OTHER ==
--- NOTE | 2019-01-10 18:10 | RADIOLOGY REPORT (SQ) ---
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 TECHNIQUE: Dynamic and static mendez scale and color images acquired of both lower extremity venous sy stems. Selected spectral images acquired with additional compression and augmentation maneuvers. Imag es stored on PACS. LIMITATIONS: None. FINDINGS: RIGHT LEG COMMON FEMORAL AND FEMORAL: There is extensive thrombus in the mid to distal superficial femoral vein . There is a trickle of flow. POPLITEAL: Normal compression and augmentation. No visualized echogenic material on mendez scale. No de fects on color images. CALF VESSELS: Normal compression and augmentation. No visualized echogenic material on mendez scale. No defects on color image. GSV AND SSV: Normal compression. No visualized echogenic material on mendez scale. No defects on color images. ANY DEEP VENOUS INSUFFICIENCY: Not evaluated. ANY EVIDENCE OF POPLITEAL CYST: No. OTHER: No other significant finding. LEFT LEG COMMON FEMORAL AND FEMORAL: Normal phasicity, compression and augmentation. No visualized echogenic m aterial on mendez scale. No defects on color images. POPLITEAL: Normal compression and augmentation. No visualized echogenic material on mendez scale. No de fects on color images. CALF VESSELS: Normal compression and augmentation. No visualized echogenic material on mendez scale. No defects on color images. GSV AND SSV: Normal compression. No visualized echogenic material on mendez scale. No defects on color images. ANY DEEP VENOUS INSUFFICIENCY: Not evaluated. ANY EVIDENCE POPLITEAL CYST: No. OTHER: No other significant finding. IMPRESSION: Acute DVT in the right superficial femoral vein. TECHNICAL DOCUMENTATION: JOB ID: [id number] [employer]- All Rights Reserved Reading location - IP/workstation name: [email or web address]
== END ==
LOC: RAD 15:15
PROVIDERS: ATTEND Internal Medicine Hematology & Oncology
DX: I82.401 Acute embolism and thrombosis of unspecified deep veins of right lower extremity (principal); D68.2 Hereditary deficiency of other clotting factors; M79.605 Pain in left leg; M79.604 Pain in right leg
CPT/HCPCS: 93970

== ENCOUNTER 2019-07-09 09:42 | Emergency (ER) | payer SELFPAY ==
[2019-07-09 09:47] VITALS: BP 122/80
[2019-07-09] MEDS ORDERED: BENZONATATE 100 MG CAPSULE PO ONE (10:19)
--- NOTE | 2019-07-09 10:40 | RADIOLOGY REPORT (SQ) ---
EXAM DESCRIPTION: CHEST 2 VIEWS COMPLETED DATE/TIME: 07/09/2019 10:30 am REASON FOR STUDY: cough COMPARISON: 09/02/2016, 07/05/2008 chest films EXAM PARAMETERS: NUMBER OF VIEWS: two views TECHNIQUE: Digital Frontal and Lateral radiographic views of the chest acquired. RADIATION DOSE: NA LIMITATIONS: none FINDINGS: LUNGS AND PLEURA: No opacities, masses or pneumothorax. No pleural effusion. MEDIASTINUM AND HILAR STRUCTURES: No masses or contour abnormalities. HEART AND VASCULAR STRUCTURES: Heart normal size. No evidence for failure. BONES: No acute findings. HARDWARE: Clips right upper quadrant post cholecystectomy. OTHER: No other significant finding. IMPRESSION: NO ACUTE RADIOGRAPHIC FINDING IN THE CHEST. TECHNICAL DOCUMENTATION: JOB ID: [id number] [employer]- All Rights Reserved Reading location - IP/workstation name: [email or web address]
--- NOTE | 2019-07-09 11:04 | ER Document Report ---
HPI - HPI Patient complains to provider of: Cough Time Seen by Provider: 07/09/19 10:16 Onset: Last week Onset/Duration: Persistent Severity: Severe Pain Level: 4 Context: 39-year-old female presents emergency department with cough complaints of a cough since last . Denies fever vomiting diarrhea. Reports cough is nonproductive. Denies history of asthma cardiac disease. Reports history of bronchitis. No complaints of chest pain shortness of breath. Associated Symptoms: None, Nonproductive cough Exacerbated by: Denies Relieved by: Denies Similar symptoms previously: No Recently seen / treated by doctor: No - REPRODUCTIVE LMP: 06/15/19 Reproductive: DENIES: : Past Medical History - General Information source: Patient Last Menstrual Period: May - Social History Smoking Status: Never Smoker Frequency of alcohol use: None Drug Abuse: None Lives with: Family Family History: Reviewed & Not Pertinent, Other - fibroid uterus-mother Patient has suicidal ideation: No Patient has homicidal ideation: No - Past Medical History Cardiac Medical History: Reports: Hx Hypertension Pulmonary Medical History: Reports: Hx Bronchitis Endocrine Medical History: Reports: Hx Diabetes Mellitus Type 2 - diet controlled at this time Renal/ Medical History: Denies: Hx Peritoneal Dialysis Past Surgical History: Reports: Hx Appendectomy, Hx Section, Hx Cholecystectomy - Immunizations Hx Diphtheria, Pertussis, Tetanus Vaccination: Yes Vertical Provider Document - CONSTITUTIONAL Agree With Documented VS: Yes Exam Limitations: No Limitations General Appearance: WD/WN, No Apparent Distress - INFECTION CONTROL TRAVEL OUTSIDE OF THE [place] IN LAST 30 DAYS: No - HEENT HEENT: Atraumatic, Normocephalic. negative: Conjuctival Injection, Pharyngeal Erythema - NECK Neck: Normal Inspection, Supple. negative: Lymphadenopathy-Left, Lymphadenopathy-Right - RESPIRATORY Respiratory: Breath Sounds Normal - Respiratory rate even unlabored. Patient speaking in a clear voice no distress, No Respiratory Distress. negative: Rhonchi, Wheezing - CARDIOVASCULAR Cardiovascular: Regular Rate, Regular Rhythm - GI/ABDOMEN Gastrointestinal: Abdomen Soft, Abdomen Non-Tender - BACK Back: Normal Inspection - MUSCULOSKELETAL/EXTREMETIES Musculoskeletal/Extremeties: MAHANK RICHEY - NEURO Level of Consciousness: Awake, Alert, Appropriate Motor/Sensory: No Motor Deficit - DERM Integumentary: Warm, Dry Course - Re-evaluation Re-evalutation: 07/09/19 11:02 39-year-old female presents with cough since last . Denies production. Denies fever vomiting diarrhea. Denies shortness of breath chest pain. Chest x-ray was negative. Patient was instructed on negative x-ray. Patient was given Tessalon Perles and she believes it did help her a little bit. She was given a prescription for Tessalon Perles. She was also instructed to monitor her breathing if she has any trouble with breathing difficulty return to the emergency department. She was also instructed to follow-up with primary care for recheck within 1 week. She verbalized understand all instructions. Chest X-Ray 07/09/19 10:19 IMPRESSION: NO ACUTE RADIOGRAPHIC FINDING IN THE CHEST. - Vital Signs Vital signs: Temp Pulse Resp BP Pulse Ox 98.5 F 92 20 122/80 100 07/09/19 09:47 07/09/19 09:47 07/09/19 09:47 07/09/19 09:47 07/09/19 09:47 - Diagnostic Test Radiology reviewed: Image reviewed, Reports reviewed Discharge - Discharge Clinical Impression: Cough Condition: Stable Disposition: HOME, SELF-CARE Instructions: Geremias Chase ([facility]) Additional Instructions: *You have been evaluated for a cough *Increase fluid intake *Take medication as prescribed *Monitor your temperature, take Tylenol as indicated *Follow up with a primary care provider within 1 week for recheck *Return to ED for worsening condition, changes, needs, difficulty breathing, concerns Prescriptions: Benzonatate [Tessalon Perles 100 mg Capsule] 100 mg PO ASDIR PRN #40 capsule PRN Reason: Forms: Return to Work
== END 2019-07-09 11:15 | disposition home or self-care (01) ==
LOC: ER 09:42
DX: R05 Cough (principal); I10 Essential (primary) hypertension; E11.9 Type 2 diabetes mellitus without complications; Z90.49 Acquired absence of other specified parts of digestive tract
CPT/HCPCS: 71046; 99283

== ENCOUNTER 2019-09-28 07:46 | Emergency (ER) | payer SELFPAY ==
[2019-09-28 08:20] LABS: ABSOLUTE EOSINOPHILS # (AUTO) 0.1 10^3/uL (0.0-0.6); ABSOLUTE LYMPHOCYTES (AUTO) 1.5 10^3/uL (0.5-4.7); ABSOLUTE MONOCYTES (AUTO) 0.2 10^3/uL (0.1-1.4); BASOPHILS % (AUTO) 0.6 % (0-2); HEMATOCRIT 37.1 % (36.0-47.0); HEMOGLOBIN 12.7 g/dL (12.0-15.5); LYMPHOCYTES % (AUTO) 30.6 % (13-45); MEAN CORPUSCULAR HEMOGLOBIN 27.6 pg (27.0-33.4); MEAN CORPUSCULAR HGB CONC 34.1 g/dL (32.0-36.0); MEAN CORPUSCULAR VOLUME 81 fl (80-97); MONOCYTES % (AUTO) 4.6 % (3-13); PLATELET COUNT 321 10^3/uL (150-450); RED BLOOD COUNT 4.59 10^6/uL (3.72-5.28); RED CELL DISTRIBUTION WIDTH 14.2 % (11.5-14.0); SEGMENTED NEUTROPHILS % (AUTO) 62.2 % (42-78); TOTAL CELLS COUNTED % (AUTO) 100 %; WHITE BLOOD COUNT 4.8 10^3/uL (4.0-10.5)
[2019-09-28 08:42] LABS: ALBUMIN 4.5 g/dL (3.5-5.0); ALKALINE PHOSPHATASE 96 U/L (38-126); ANION GAP 11 (5-19); ASPARTATE AMINO TRANSFERASE 18 U/L (14-36); BILIRUBIN,DIRECT 0.2 mg/dL (0.0-0.4); BILIRUBIN,TOTAL 0.4 mg/dL (0.2-1.3); BLOOD UREA NITROGEN 8 mg/dL (7-20); CALCIUM 9.3 mg/dL (8.4-10.2); CARBON DIOXIDE 27 mmol/L (22-30); CHLORIDE 103 mmol/L (98-107); GLUCOSE 92 mg/dL (75-110); POTASSIUM 4.4 mmol/L (3.6-5.0)
[2019-09-28] MEDS ORDERED: ONDANSETRON HCL INJ/PF 4 MG/2 ML SDV IV ONE (09:31)
--- NOTE | 2019-09-28 09:40 | ER Document Report ---
ED General - General Chief Complaint: Nausea/Vomiting/Diarrhea Stated Complaint: NAUSEA,VOMITING,DIARRHEA Time Seen by Provider: 09/28/19 08:26 Notes: Patient is a 39-year-old -Polish female with past medical history of right lower extremity DVT on Lovenox twice daily who presents to the emergency department with a chief complaint of nausea vomiting and diarrhea for the past 2 to 3 days. States that her kids were sick previously with similar symptoms but they have resolved. She reports that hers just seem to persist over the pr evious 2 to 3 days without any evidence of improvement. She does admit to some intermittent nonspecific right upper quadrant pain that radiates around to the back. She is status post cholecystectomy. She denies any known fever but admits to chills and sweats. Denies any recent travel. Is currently on her menstrual cycle. TRAVEL OUTSIDE OF THE [place] IN LAST 30 DAYS: No - Related Data Allergies/Adverse Reactions: lisinopril [Lisinopril] Allergy (Intermediate, Verified 07/08/18 10:15) Swollen tongue MAXWELL Inhibitors [Maxwell Inhibitors] Allergy (Verified 07/08/18 10:15) ACEINHIBITORS [MAXWELL Inhibitors] Allergy (Verified 07/08/18 10:15) Home Medications: Lovenox Past Medical History - Social History Smoking Status: Never Smoker Family History: Reviewed & Not Pertinent, Other - fibroid uterus-mother Patient has suicidal ideation: No Patient has homicidal ideation: No - Past Medical History Cardiac Medical History: Reports: Hx Hypertension Pulmonary Medical History: Reports: Hx Bronchitis Endocrine Medical History: Reports: Hx Diabetes Mellitus Type 2 - diet contr olled at this time Renal/ Medical History: Denies: Hx Peritoneal Dialysis Past Surgical History: Reports: Hx Appendectomy, Hx Section, Hx C holecystectomy - Immunizations Hx Diphtheria, Pertussis, Tetanus Vaccination: Yes Review of Systems - Review of Systems Gastrointestinal: Abdominal pain, Diarrhea, Nausea, Vomiting -: Yes All other systems reviewed and negative Physical Exam - Vital signs Vitals: Temp Pulse Resp BP Pulse Ox 98.6 F 75 16 141/79 H 99 09/28/19 07:51 09/28/19 07:51 09/28/19 07:51 09/28/19 07:51 09/28/19 07:51 - General General appearance: Appears well, Alert In distress: None - HEENT Head: Normocephalic, Atraumatic Eyes: Normal Pupils: PERRL Ears: Normal External canal: Normal Tympanic membrane: Normal Sinus: Normal Nasal: Normal Mouth/Lips: Normal Mucous membranes: Normal Pharynx: Normal Neck: Normal - Respiratory Respiratory status: No respiratory distress Chest status: Nontender Breath sounds: Normal Chest palpation: Normal - Cardiovascular Rhythm: Regular Heart sounds: Normal auscultation - Abdominal Inspection: Normal Distension: No distension Bowel sounds: Normal Tenderness: Nontender Organomegaly: No organomegaly - Back Back: No: CVA tenderness - Neurological Neuro grossly intact: Yes Cognition: Normal Orientation: AAOx4 Terrell Coma Scale Eye Opening: Spontaneous [place] Coma Scale Verbal: Oriented [place]rell Coma Scale Motor: Obeys Commands [place] Coma Scale Total: 15 Speech: Normal - Psychological Associated symptoms: Normal affect, Normal mood - Skin Skin Temperature: Warm Skin Moisture: Dry Skin Color: Normal Course - Re-evaluation Re-evalutation: 09/28/19 11:53 Work-up largely unremarkable. Patient with hematuria, expected during her menstrual cycle which she is currently on. Incidental uterine fibroid noted, patient states that she was aware. History and physical consistent with a viral gastroenteritis. Counseled her regarding supportive care measures, rest and hydration. Discussed with her the importance of outpatient follow-up. Will prescribe Zofran. Advise she return here or any ER immediately with any new, persistent or worsening symptoms. She verbalized understood and agreed. - Vital Signs Vital signs: Temp Pulse Resp BP Pulse Ox 98.6 F 75 16 141/79 H 99 09/28/19 07:51 09/28/19 07:51 09/28/19 07:51 09/28/19 07:51 09/28/19 07:51 - Laboratory Result Diagrams: 09/28/19 08:01 09/28/19 08:01 Laboratory results interpreted by me: 09/28/19 09/28/19 08:01 09:48 RDW 14.2 H Urine Protein 30 H Urine Blood LARGE H Discharge - Discharge Clinical Impression: Nausea and vomiting Qualifiers: Vomiting type: unspecified Vomiting Intractability: unspecified Qualified Code(s): R11.2 - Nausea with vomiting, unspecified Diarrhea Qualifiers: Diarrhea type: unspecified type Qualified Code(s): R19.7 - Diarrhea, unspecified Condition: Stable Disposition: HOME, SELF-CARE Instructions: Diarrhea, Nonspecific ([facility]), Antinausea Medication ([facility]) Additional Instructions: Follow-up with your regular doctor in 2 to 3 days for reevaluation. Return here or any ER immediately with any new, persistent or worsening symptoms. Prescriptions: Ondansetron [Zofran Odt 4 mg Tablet] 1 tab PO Q8 PRN #20 tab.rapdis PRN Reason: For Nausea/Vomiting
[2019-09-28 10:21] LABS: A TYPE INFLUENZA AG NEGATIVE (NEGATIVE); B INFLUENZA AG NEGATIVE (NEGATIVE)
[2019-09-28 10:32] LABS: APPEARANCE,URINE CLEAR; BILIRUBIN,URINE NEGATIVE (NEGATIVE); GLUCOSE, URINE NEGATIVE (NEGATIVE); KETONES,URINE NEGATIVE (NEGATIVE); LEUKOCYTE ESTERASE,URINE NEGATIVE (NEGATIVE); NITRITE,URINE NEGATIVE (NEGATIVE); PROTEIN,URINE 30 mg/dL (NEGATIVE); URINE SPECIFIC GRAVITY 1.018; UROBILINOGEN,URINE NEGATIVE mg/dL (<2.0)
[2019-09-28 10:34] LABS: COLOR,URINE PINK
--- NOTE | 2019-09-28 11:47 | RADIOLOGY REPORT (SQ) ---
EXAM DESCRIPTION: CT ABD/PELVIS NO ORAL OR IV COMPLETED DATE/TIME: 09/28/2019 11:23 am REASON FOR STUDY: R flank pain hematuria COMPARISON: None. TECHNIQUE: CT scan of the abdomen and pelvis performed without intravenous or oral contrast. Images reviewed with lung, soft tissue, and bone windows. Reconstructed coronal and sagittal MPR images revi ewed. All images stored on PACS. All CT scanners at this facility use dose modulation, iterative reconstruction, and/or weight based d osing when appropriate to reduce radiation dose to as low as reasonably achievable (ALARA). [facility]: Dose Right [facility]: CareDose [facility]: Dose Right [facility]: Teradose 4D [facility]: [employer]ME Solutions RADIATION DOSE: CT Rad equipment meets quality standard of care and radiation dose reduction techniq ues were employed. CTDIvol: 18.5 mGy. DLP: 1011 mGy-cm.mGy. LIMITATIONS: None. FINDINGS: LOWER CHEST: No significant findings. No nodules or infiltrates. NON-CONTRASTED LIVER, SPLEEN, ADRENALS: Evaluation limited by lack of IV contrast. No identified sign ificant masses. PANCREAS: No masses. No peripancreatic inflammatory changes. GALLBLADDER: Surgically absent. RIGHT KIDNEY AND URETER: No suspicious masses. Assessment limited by lack of IV contrast. No signif icant calcifications. No hydronephrosis or hydroureter. LEFT KIDNEY AND URETER: No suspicious masses. Assessment limited by lack of IV contrast. No signifi cant calcifications. No hydronephrosis or hydroureter. AORTA AND RETROPERITONEUM: No aneurysm. No retroperitoneal masses or adenopathy. BOWEL AND PERITONEAL CAVITY: No obvious masses or inflammatory changes. No free fluid. APPENDIX: Normal. PELVIS, BLADDER, AND ABDOMINAL WALL:No abnormal masses. No free fluid. Bladder normal. Calcified kelly rine leiomyoma. BONES: No significant findings. OTHER: No other significant finding. IMPRESSION: 1. No evidence of nephrolithiasis or obstructive uropathy. 2. Normal appendix. Prior cholecystectomy. 3. Calcified uterine leiomyoma. COMMENT: Quality ID # [id number]: Final reports with documentation of one or more dose reduction techniques (e.g., Automated exposure control, adjustment of the mA and/or kV according to patient size, use of iterative reconstruction technique) TECHNICAL DOCUMENTATION: JOB ID: [id number] [employer]- All Rights Reserved Reading location - IP/workstation name: [email or web address]
[2019-09-28 12:55] VITALS: BP 136/72
== END 2019-09-28 12:53 | disposition home or self-care (01) ==
LOC: ER 07:46
DX: R11.2 Nausea with vomiting, unspecified (principal); R19.7 Diarrhea, unspecified; R10.11 Right upper quadrant pain; D25.9 Leiomyoma of uterus, unspecified; I10 Essential (primary) hypertension; E11.9 Type 2 diabetes mellitus without complications; Z79.02 Long term (current) use of antithrombotics/antiplatelets; Z90.49 Acquired absence of other specified parts of digestive tract
CPT/HCPCS: 36415; 83690; 85025; 81025; 80053; 81001; 87804; 74176; J2405; 96374; 99284